=== PATIENT | female | born 1950 | race African-American/Black ===

== ENCOUNTER 2018-10-22 18:54 | Inpatient (IN) | payer OTHER ==
[~2018-10-22] VITALS: Ht 175.3 cm; Wt 127.5 kg
[~2018-10-22 18:54] MED LIST: ASPI81CT PO; BEN50 PO; CHOL200072 PO; ESCI20TA PO; FLUO60TA PO; HYDR-5122 PO; LOSA100T1 PO; MECL-322 PO; MONT10TA35 PO; SIMV20TA1 PO; THO25 PO; TIZA4CAP PO; TRAZ-343 PO
[2018-10-22 19:02] VITALS: BP 154/96
--- NOTE | 2018-10-22 19:14 | NUR ---
68 U/O FEMALE BIB EMS FROM HOME WITH C/O N/V, DIFUSE ABD PAIN, AND GENERALIZED WEAKNESS. HX OF HTN. STATES PAIN IN X4 QUADRANTS, X4 QUADRANT BOWEL SOUNDS PRESENT. VOMITING BUT DRY-HEAVE. ALERT TO NAME, PLACE, TIME, EVENT. PT STATES FEELING ILL PAST DAY. AMBULATES AT HOME BUT FEELS TO WEAK TO AMBULATE AT THIS TIME.
--- NOTE | 2018-10-22 19:14 | NUR ---
PATIENT TO BED 4 BY EMS AT THIS TIME.
[2018-10-22] MEDS ORDERED: ONDANSETRON 4 MG/2 ML VIAL IVP ONE ×2 (19:30→21:40)
[2018-10-22] MEDS ORDERED: KETOROLAC 30 MG/ML VIAL IVP ONE (19:30)
[2018-10-22] MEDS ORDERED: NACL 0.9% 1,000 ML IV ONE ×2 (19:30→20:20)
[2018-10-22] MEDS ORDERED: ALBUTEROL SULFATE/IPRATROPIU 3 ML SOL IH ONE (19:30)
[2018-10-22] MEDS ORDERED: methylPREDNISolone SS 125 MG/2 ML VIAL IVP ONE (19:35)
[2018-10-22 19:43] LABS: BASOPHILS # (AUTO) 0.1 K/uL (0.00-0.22); BASOPHILS % (AUTO) 0.6 % (0.0-2.0); HEMATOCRIT 41.1 % (36-48); HEMOGLOBIN 13.6 g/dL (12.0-16.0); LYMPHOCYTES # (AUTO) 1.8 K/uL (2.5-16.5); LYMPHOCYTES % (AUTO) 10.5 % (20.5-51.1); MEAN CORPUSCULAR HEMOGLOBIN 29 pg (27-31); MEAN CORPUSCULAR HGB CONC 33 g/dL (33-37); MEAN CORPUSCULAR VOLUME 88.6 fL (80-94); MONOCYTES # (AUTO) 0.4 K/uL (0.8-1.0); MONOCYTES % (AUTO) 2.6 % (1.7-9.3); NEUTROPHILS # (AUTO) 14.7 K/uL (1.8-7.7); NEUTROPHILS % (AUTO) 86.3 % (42.2-75.2); PLATELET COUNT (AUTO) 235 K/uL (140-450); RED BLOOD CELL COUNT(AUTO) 4.63 MIL/uL (4.20-5.40); RED CELL DISTRIBUTION WIDTH 14.3 % (11.6-13.7)
[2018-10-22 20:04] LABS: ALBUMIN 3.4 g/dL (3.4-5.0); ANION GAP 18.2 (8-16); CARBON DIOXIDE 24.5 mmol/L (21-32); TOTAL BILIRUBIN 0.4 mg/dL (0.0-1.0)
--- NOTE | 2018-10-22 20:05 | NUR ---
PT RETURN FROM CT
[2018-10-22 20:15] LABS: POTASSIUM 2.7 mmol/L (3.5-5.1)
[2018-10-22] MEDS ORDERED: MORPHINE SULFATE 4 MG/ML SYR IVP ONE (20:20)
[2018-10-22] MEDS ORDERED: POTASSIUM CHLORIDE 10 MEQ TABER PO ONE (20:20)
[2018-10-22] MEDS ORDERED: LEVOFLOXACIN 750 MG/D5W PREMIX 150 ML IV ONE (20:25)
[2018-10-22] MEDS ORDERED: METOCLOPRAMIDE 10 MG/2 ML INJ VIAL IVP ONE (20:25)
[2018-10-22] MEDS ORDERED: KCL 20 MEQ/WATER INJ PREMIX 200 ML IV ONE (20:25)
--- NOTE | 2018-10-22 20:25 | NUR ---
NEED TO ESTABILISH SECOND IV LINE. X3 ATTEMPTS. INFORMED CHARGE NURSE AND FLOAT NURSE FOR ASSISTANCE. CONTINUE TO MONITOR.
--- NOTE | 2018-10-22 20:35 | NUR ---
STILL UNABLE TO ESTABLISH IV LINE. STAFF CONTINUE TO MAKE ATTEMPTS. DR KAN NOTIFIED SECOND LINE NOT STARTED. LEVAQUIN NEEDS TO BE STARTED BUT CANNOT RUN IN LEFT HAND BECAUSE IV FLUIDS AND POTASSIUM RUNNING. CONTINUE TO MONITOR.
--- NOTE | 2018-10-22 20:37 | NUR ---
EKG PERFORMED AT BEDSIDE
[2018-10-22 20:41] LABS: APPEARANCE,URINE HAZY (CLEAR); BILIRUBIN,URINE 1+ (NEGATIVE); BLOOD, URINE NEGATIVE (NEGATIVE); COLOR,URINE ORANGE (YELLOW); LEUKOCYTE ESTERASE ,URINE NEGATIVE (NEGATIVE); NITRITE, URINE NEGATIVE (NEGATIVE); UGLUCOSE NEGATIVE (NEGATIVE)
[2018-10-22 20:46] LABS: RBC,URINE 0-5 /HPF (0-5)
--- NOTE | 2018-10-22 21:10 | NUR ---
PT UNRELIEVED. DR KAN NOTIFIED. CONTINUE TO MONITOR.
[2018-10-22] MEDS ORDERED: ACETAMINOPHEN 325 MG TAB PO PRN (21:30)
[2018-10-22] MEDS ORDERED: ONDANSETRON 4 MG/2 ML VIAL IVP PRN (21:30)
--- NOTE | 2018-10-22 21:30 | NUR ---
PAIN AND NAUSEA RELIEVED. CONTINUE TO MONITOR.
[2018-10-22] MEDS ORDERED: FAMOTIDINE 20 MG/2 ML VIAL IVP ONE (21:40)
[2018-10-22] MEDS ORDERED: TRAZ-343 PO (21:42)
[2018-10-22] MEDS ORDERED: FLUO10CA21 PO (21:43)
[2018-10-22] MEDS ORDERED: MONT10TA35 PO (21:44)
[2018-10-22] MEDS ORDERED: SIMV20TA1 PO (21:44)
[2018-10-22] MEDS ORDERED: LOSA50TA66 PO (21:46)
[2018-10-22 22:00] LABS: PROTHROMBIN TIME 10.4 secs (10.8-13.4)
[2018-10-22 22:03] LABS: BARBITURATE, URINE NEG. ng/ml (NEG <=200); BENZODIAZEPINE, URINE NEG. ng/mL (NEG <=200); CANNABINOID, URINE POS. ng/mL (NEG <=50); COCAINE, URINE NEG. ng/mL (NEG <=300); OPIATE, URINE POS. ng/mL (NEG <=2000); PHENCYCLIDINE SCREEN,URINE NEG. ng/mL (NEG <=25)
--- NOTE | 2018-10-22 22:09 | NUR ---
SECOND IV LINE, 22G LAC ESTABLISHED. LEVAQUIN STARTED. CONTINUE TO MONITOR.
[2018-10-22 22:11] LABS: FREE T4 (FREE THYROXINE) 1.13 ng/dL (0.76-1.46); MAGNESIUM 1.4 mg/dL (1.8-2.4); THYROID STIMULATING HORMONE 0.58 uIU/mL (0.34-3.74)
[2018-10-22] MEDS ORDERED: ALBUTEROL SULFATE/IPRATROPIU 3 ML SOL IH PRN (22:25)
[2018-10-22 22:40] VITALS: BP 195/99
--- NOTE | 2018-10-22 22:40 | NUR ---
RECEIVED PATIENT AND REPORT FROM EMERGENCY DEPARTMENT VIA [facility]. DAUGHTER IS AT BEDSIDE. PATIENT ADMITTED FOR GENERALIZED WEAKNESS, NAUSEA AND VOMITING. VS; BP 195/99, T 99.3, P 100, RR 22, O2 100%PATIENT IS AWAKE, ALERT, ORIENTED X 4. PATIENT IS ON TELEMETRY MONITORING. IS ON ROOM AIR. IS WNL. LAST BOWEL MOVEMENT WAS 10/19/18. AMBULATORY WITH 1 PERSON ASSIST. IV SITE ON LEFT HAND WITH 22 GA, AND LEFT ANTECUBITAL WITH 22 GA RUNNING WITH POTASSIUM 20 MeQ AT 40 ML/HR, AND NORMAL SALINE AT 50 ML/HR. PATIENT COMPLAINS OF MILD CHEST PAIN OF PRESSURE CHARACTERISTIC 8/10. BED IS AT LOW POSITION, SIDE RAILS ARE UP, AND CALL LIGHT WITHIN REACH. WILL ADMINISTER MEDICATION ORDERED, AND WILL CONTINUE TO MONITOR PATIENT.
--- NOTE | 2018-10-22 22:40 | NUR ---
REPORT GIVEN AND CARE TRANSFERED TO VIC RN ROOM 128B. TRNASFERED VIA GURNEY WITH VSS.
[2018-10-22] MEDS ORDERED: DOCUSATE SODIUM 100 MG GELCAP PO SCH (22:45)
[2018-10-22] MEDS ORDERED: ASPIRIN 325 MG TAB PO SCH (23:00)
[2018-10-22] MEDS ORDERED: MAG SULF 2000 MG/WATER PREMIX 100 ML IV SCH (23:00)
[2018-10-22] MEDS ORDERED: METOPROLOL 25 MG TAB PO SCH (23:00)
--- NOTE | 2018-10-22 23:00 | NUR ---
NO SCD NOT INDICATED. ON HEPARIN SUBQ. Addendum: 10/23/18 at 0644 by Ashlie Auguste RN CORRECTION: SCD NOT INDICATED. ON HEPARIN SUBQ.
[2018-10-22] MEDS ORDERED: NITROGLYCERIN 0.4 MG TAB SL SCH (23:15)
[2018-10-22] MEDS ORDERED: traZODone 50 MG TAB PO SCH (23:15)
[2018-10-22] MEDS ORDERED: SIMVASTATIN 20 MG TAB PO SCH (23:15)
[2018-10-22] MEDS ORDERED: SODIUM PHOS / POTASSIUM PHOS 1 PKT PDR PO SCH (23:15)
[2018-10-22] MEDS ORDERED: DICYCLOMINE HCL LIQUID 10 MG/5 ML UDC PO SCH (23:30)
[2018-10-22] MEDS ORDERED: LIDOCAINE VISCOUS 2% 20 ML UDC PO SCH (23:30)
[2018-10-22] MEDS ORDERED: ALUMINUM HYD/MAG/SIMETHICONE 30 ML UDC PO SCH (23:30)
--- NOTE | 2018-10-22 23:35 | NUR ---
ADMINISTERED NITRO AND BLOOD PRESSURE MEDS ORDERED. WILL CONTINUE TO MONITOR PATIENT
--- NOTE | 2018-10-22 23:43 | NUR ---
PT REFUSED ASPIRIN TABLET DUE TO NAUSEA.
[2018-10-23] MEDS ORDERED: NICOTINE TRANSD SYS 7 MG/24 HR PATCH TD SCH
[2018-10-23] MEDS ORDERED: PIPER/TAZO 3.375GM/D5W PREMIX 50 ML IV SCH
[2018-10-23] MEDS ORDERED: MEDICATION REC. PHARMACY CONS. 1 EA MISC MC PRN (00:30)
[2018-10-23] MEDS: MELATONIN 3 MG TAB PO PRN ×2 (01:04→22:16)
[2018-10-23 01:12] VITALS: BP 197/108
--- NOTE | 2018-10-23 01:12 | NUR ---
BLOOD PRESSURE RECHECKED 197/107,HR-86,R-18. DR. KEEN RESIDENT ON DUTY MAD AWARE. WILL ORDER MEDS.
[2018-10-23] MEDS ORDERED: hydrALAZINE 20 MG/ML VIAL IVP PRN (01:15)
[2018-10-23] MEDS: DEXT 5% / NACL 0.9% 500 ML IV SCH ×3 (01:54→15:04)
[2018-10-23] MEDS ORDERED: Z-GUARD PASTE TP PRN (02:40)
[2018-10-23 03:06] VITALS: BP 184/107
--- NOTE | 2018-10-23 03:06 | NUR ---
PT IS AWAKE. BP RECHECKED RESULT 184/107, HR-88 WILL HAVE MD AWARE. NO C/O ANY DISCOMFORT NOR PAIN NOTED.
[2018-10-23] MEDS ORDERED: MORPHINE SULFATE 4 MG/ML SYR IVP PRN (03:20)
--- NOTE | 2018-10-23 03:31 | NUR ---
DR. KEEN CAME IN TO ASSESS PATIENT. ADMINISTERED MORPHINE SULFATE 4MG/ML ORDERED. PATIENT TOLERATED IT WELL. WILL CONTINUE TO MONITOR PATIENT.
[2018-10-23] MEDS: MAG SULF 2000 MG/WATER PREMIX 50 ML IV SCH ×2 (03:42→06:19)
[2018-10-23] MEDS ORDERED: PIPERACILLIN/TAZOBACTAM 3.375 GM VIAL IV ONE (05:22)
[2018-10-23] MEDS: PIPER/TAZO 3.375GM/D5W PREMIX 50 ML IV SCH ×3 (05:45→20:25)
--- NOTE | 2018-10-23 05:45 | NUR ---
PATIENT AWAKE LYING IN BED. KYLE MARY. RECHECKED VS: BP 133/63. LABORATORY STAFF AT BEDSIDE. PATIENT DENIES ANY PAIN AT THIS TIME. WILL CONTINUE TO MONITOR PATIENT.
[2018-10-23 05:46] VITALS: BP 133/63
[2018-10-23 06:33] LABS: HEMATOCRIT 36.7 % (36-48); HEMOGLOBIN 12.4 g/dL (12.0-16.0); MEAN CORPUSCULAR HEMOGLOBIN 30 pg (27-31); MEAN CORPUSCULAR HGB CONC 34 g/dL (33-37); MEAN CORPUSCULAR VOLUME 89.3 fL (80-94); PLATELET COUNT (AUTO) 193 K/uL (140-450); RED BLOOD CELL COUNT(AUTO) 4.11 MIL/uL (4.20-5.40); RED CELL DISTRIBUTION WIDTH 14.4 % (11.6-13.7); WHITE BLOOD COUNT (AUTO) 17.1 K/uL (4.8-10.8)
[2018-10-23 07:02] LABS: ANION GAP 15.5 (8-16); CARBON DIOXIDE 24.7 mmol/L (21-32); CREATININE 1.1 mg/dL (0.6-1.3); POTASSIUM 3.2 mmol/L (3.5-5.1)
[2018-10-23 07:08] LABS: CHOL/HDL RATIO 2.5 (1-4.5)
--- NOTE | 2018-10-23 07:25 | NUR ---
ENDORSED PATIENT TO DAY SHIFT NURSE FOR CONTINUITY OF CARE. PATIENT AWAKE, LYING IN BED, WATCHING TV. NO SIGNS OF DISTRESS AT THIS TIME. BED IS IN LOW POSITION, SIDE RAILS ARE UP, AND CALL LIGHT WITHIN REACH.
--- NOTE | 2018-10-23 07:27 | NUR ---
RECEIVED BEDSIDE REPORT FROM MAGAZINE EDITOR NURSE FOR CONTINUITY OF CARE. PATIENT IS AWAKE AND RESTING ON BED AT THIS TIME. PATIENT IS AAOX4. RESPIRATION EVEN AND UNLABORED ON RA. DENIES NAUSEA, VOMITING, PAIN AND SOB. NO SIGNS OF DISTRESS NOTED. IV ON L HAND 22G, SL, AND LAC 22G, INTACT AND CLEAN, INFUSING PER MD ORDER. SMALL SKIN TEAR ON L BUTTOCK NOTED, OPTIFOAM WAS CLEAN AND DRY. PATIENT IS CONTINENT AND AMBULATE WITH STANDBY ASSIST. DISCUSSED PLAN OF CARE WITH PATIENT AND PATIENT VERBALIZED UNDERSTANDING. INSTRUCTED PATIENT TO USE THE CALL LIGHT FOR ANY ASSISTANCE AND PATIENT WAS AWARE. TELE MONITOR ATTACHED. BED IN LOW POSITION AND CALL LIGHT WITHIN REACH.
[2018-10-23 07:35] LABS: BASOPHILS % (MANUAL) 1 % (0-2); LYMPHOCYTES % (MANUAL) 12 % (20-46); MONOCYTES % (MANUAL) 2 % (5-12)
[2018-10-23 08:00] VITALS: BP 125/69
[2018-10-23] MEDS: ALBUTEROL SULFATE/IPRATROPIU 3 ML SOL IH SCH ×3 (08:19→22:01)
--- NOTE | 2018-10-23 08:34 | NUR ---
TOLERATED INCENTIVE SPIROMETRY THERAPY WELL WITHOUT INCIDENT ENCOURAGED PATIENT WITH ACKNOWLEDGEMENT TO USE INCENTIVE SPIROMETRY EVERY 1-2 WHILE AWAKE
[2018-10-23] MEDS: FLUoxetine 10 MG CAP PO SCH (08:36)
[2018-10-23] MEDS: LACTOBACILLUS RHAMNOSUS GG 1 EACH CAP PO SCH (08:37)
[2018-10-23] MEDS: DOCUSATE SODIUM 100 MG GELCAP PO SCH ×2 (08:37→20:24)
[2018-10-23] MEDS: MONTELUKAST SODIUM 10 MG TAB PO SCH (08:38)
[2018-10-23] MEDS: METOPROLOL 25 MG TAB PO SCH ×2 (08:39→20:24)
[2018-10-23] MEDS: LOSARTAN 50 MG TAB PO SCH (08:39)
[2018-10-23] MEDS: HYDROcodone/APAP 7.5/325 MG 1 TAB PO PRN ×2 (08:40→20:24)
--- NOTE | 2018-10-23 08:45 | NUR ---
PATIENT HAS BEEN SCREENED AND CATEGORIZED HIGH NUTRITION RISK. PATIENT WILL BE SEEN WITHIN 1-2 DAYS OF ADMISSION. 10/23/18-10/24/[address]
[2018-10-23] MEDS: NICOTINE TRANSD SYS 7 MG/24 HR PATCH TD SCH (08:46)
--- NOTE | 2018-10-23 08:47 | NUR ---
PATIENT COMPLAINED 6/10 PAIN ON HER ABDOMINAL AREA. ADMINISTERED SCHEDULED MEDS PER MD ORDER AND PRN PAIN MED, PATIENT TOLERATED WELL. NO SIGNS OF DISTRESS NOTED. SAFETY MEASURES IN PLACE. TELE MONITOR ATTACHED.
--- NOTE | 2018-10-23 08:59 | NUR ---
WOUND CARE EVALUATION DONE TO THIS 68 Y/O FEMALE PT. PT. IS AAX4 UNABLE TO RECALL WHAT HAPPEN TO SKIN OPENING TO LEFT UPPER BUTTOCK. LEFT UPPER BUTTOCK WITH PARTIAL THICKNESS LOSS OF SKIN 1.5X1.5 CM WITH SUPERFICIAL DEPTH, WOUND BED 100% GRANULATING TISSUE, MOIST, NO ODOR, KEENAN WOUND SKIN INTACT, NO FURTHER DAMAGE NOTICE AT THIS TIME. WOUND CARE INSTRUCTIONS PROVIDED TO PT. PT. VERBALIZES UNDERSTANDING. ASSIST PT TO BR. PRIVACY PROVIDED. PT WALKS WITH STEADY GAITS PRIMARY RN NOTIFIED PT IS IN BR. POC DISCUSSED WITH PRIMARY RN. RECOMMENDATIONS: -CLEANSE LEFT BUTTOCK OPEN WOUND WITH NS. PAT DRY, APPLY SILVASORB GEL AND COVER WITH COMPOSITE DRESSING CHANGE QD AND PRN IF SOILING, KEEP AREA DRY AND CLEAN AT ALL TIMES. Addendum: 10/23/18 at 0919 by Fanny Zuluaga RN (Grace) CLARIFICATION: LEFT BUTTOCK WOUND IS NOT A PRESSURE ULCER INJURY
[2018-10-23] MEDS ORDERED: METOPROLOL 25 MG TAB PO SCH (09:00)
[2018-10-23] MEDS ORDERED: SODIUM PHOS / POTASSIUM PHOS 1 PKT PDR PO SCH (09:00)
--- NOTE | 2018-10-23 09:50 | NUR ---
PATIENT IS AWAKE AND WATCHING TV ON BED AT THIS TIME. NO SIGNS OF DISTRESS NOTED. SAFETY MEASURES IN PLACE.
[2018-10-23] MEDS ORDERED: POTASSIUM CHLORIDE 40 MEQ, LIDOCAINE MPF 1% - 5 mL VIAL 25 MG in NACL 0.9% 250 ML IV SCH (10:00)
[2018-10-23 10:49] LABS: MAGNESIUM 2.1 mg/dL (1.8-2.4); PHOSPHORUS 3.4 mg/dL (2.5-4.9)
--- NOTE | 2018-10-23 11:25 | NUR ---
ASSISTED PATIENT TO GO THE BATHROOM AND WENT BACK ON BED. NO SIGNS OF DISTRESS NOTED. SAFETY MEASURES IN PLACE.
--- NOTE | 2018-10-23 12:15 | NUR ---
DR ARIAS IS ASSESSING PATIENT AT BEDSIDE. NO SIGNS OF DISTRESS NOTED. SAFETY MEASURES IN PLACE.
[2018-10-23] MEDS: GAUZE TP SCH (13:04)
--- NOTE | 2018-10-23 13:18 | NUR ---
PATIENT IS RECEIVING BREATHING TREATMENT AT THIS TIME. NO SIGNS OF DISTRESS NOTED. SAFETY MEASURES IN PLACE.
[2018-10-23] MEDS: CYCLOBENZAPRINE 10 MG TAB PO PRN (15:03)
--- NOTE | 2018-10-23 15:06 | NUR ---
10/23/18 RD INITIAL ASSESSMENT COMPLETED PLEASE REFER TO NUTRITION ASSESSMENT UNDER CARE ACTIVITY FOR ESTIMATED NUTRITIONAL NEEDS. 1. CONTINUE ICE CHIPS ONLY MEDICALLY NECESSARY 2. IF/WHEN PT IS MEDICALLY STABLE CONSIDER ADVANCING TO CLEAR LIQUID DIET, FOLLOWING A NA [address] TO FOLLOW-UP 2-3 DAYS, HIGH RISK KATEY PAN RD
--- NOTE | 2018-10-23 15:11 | NUR ---
PATIENT COMPLAINED 7/10 PAIN ON HER BACK AND ABDOMINAL AREA. ADMINISTERED PRN CYCLOBENZAPRINE MD ORDER, PATIENT TOLERATED WELL. APPLIED HOT PAD ON BACK. PATIENT IS LAYING DOWN ON BED AND WATCHING TV. SAFETY MEASURES IN PLACE.
[2018-10-23 16:00] VITALS: BP 137/70
--- NOTE | 2018-10-23 17:11 | NUR ---
PATIENT IS AWAKE AND WATCHING TV ON BED. DENIES PAIN, NAUSEA AND VOMITING. NO SIGNS OF DISTRESS NOTED. SAFETY MEASURES IN PLACE. BED IN LOW POSITION AND CALL LIGHT WITHIN REACH.
--- NOTE | 2018-10-23 19:13 | NUR ---
ENDORSED PATIENT AT BEDSIDE TO DIGITAL ASSOCIATE NURSE FOR CONTINUITY OF CARE. PATIENT IS IN STABLE CONDITION.
--- NOTE | 2018-10-23 19:15 | NUR ---
RECEIVED REPORT FROM DAY SHIFT NURSE FOR CONTINUITY OF CARE. PATIENT LYING DOWN IN BED, AWAKE, WATCHING TV. PATIENT ON ROOM AIR. DENIES PAIN AT THIS TIME. BED IS IN LOW POSITION, SIDE RAILS ARE UP, AND CALL LIGHT WITHIN REACH. WILL CONTINUE TO MONITOR PATIENT.
--- NOTE | 2018-10-23 20:00 | NUR ---
VS TAKEN: BP 128/72, T 98.2, P 65, RR 19, O2 99% RA
[2018-10-23] MEDS: traZODone 50 MG TAB PO SCH (20:24)
--- NOTE | 2018-10-23 20:24 | NUR ---
PATIENT LYING IN BED AWAKE, WATCHING TV. ADMINISTERED MEDS ORDERED. GAVE PATIENT EDUCATION REGARDING MEDICATIONS. PATIENT FELT NAUSEOUS AND VOMITED. WILL MEDICATE FOR N/V.
[2018-10-23] MEDS: SIMVASTATIN 20 MG TAB PO SCH (20:25)
--- NOTE | 2018-10-23 20:34 | NUR ---
ADMINISTERED ZOFRAN ORDERED FOR N/V. WILL CONTINUE TO MONITOR PATIENT.
--- NOTE | 2018-10-23 22:15 | NUR ---
PATIENT STATED HELIO HELPED. ADMINISTERED MELATONIN MEDICATION ORDERED. MEDICATION TOLERATED WELL. WILL CONTINUE TO MONITOR PATIENT.
[2018-10-24 00:25] VITALS: BP 138/70
[2018-10-24] MEDS: HYDROcodone/APAP 7.5/325 MG 1 TAB PO PRN ×3 (00:27→20:35)
[2018-10-24] MEDS: DEXT 5% / NACL 0.9% 500 ML IV SCH (01:46)
--- NOTE | 2018-10-24 02:09 | NUR ---
PATIENT LYING IN BED ASLEEP. NO SIGNS OF DISTRESS AT THIS TIME. WILL CONTINUE TO MONITOR PATIENT.
[2018-10-24] MEDS ORDERED: DEXT 5% /NACL 0.9% 1,000 ML IV SCH (03:20)
--- NOTE | 2018-10-24 04:00 | NUR ---
PATIENT LYING DOWN IN BED APPEARS TO BE ASLEEP. VITAL SIGNS WERE TAKEN. NO SIGNS OF DISTRESS AT THIS TIME. WILL CONTINUE TO MONITOR PATIENT.
[2018-10-24] MEDS: PIPER/TAZO 3.375GM/D5W PREMIX 50 ML IV SCH ×3 (04:39→23:14)
--- NOTE | 2018-10-24 05:00 | NUR ---
HUNG IV ANTIBIOTICS, AND D5NS ORDERED. ASSISTED PATIENT TO THE BATHROOM, PATIENT TOLERATED AMBULATION. WILL CONTINUE TO MONITOR PATIENT.
--- NOTE | 2018-10-24 06:00 | NUR ---
PATIENT LYING DOWN IN BED SLEEPING. LABORATORY STAFF AT BEDSIDE FOR LAB DRAW. NO SIGNS OF DISTRESS AT THIS TIME. WILL CONTINUE TO MONITOR PATIENT.
[2018-10-24 06:31] LABS: ANION GAP 13.1 (8-16); CARBON DIOXIDE 26.2 mmol/L (21-32); POTASSIUM 3.3 mmol/L (3.5-5.1)
[2018-10-24 06:32] LABS: MAGNESIUM 2.4 mg/dL (1.8-2.4)
[2018-10-24 06:48] LABS: BASOPHILS # (AUTO) 0.2 K/uL (0.00-0.22); BASOPHILS % (AUTO) 0.9 % (0.0-2.0); EOSINOPHILS % (AUTO) 0.1 % (0.0-4.0); HEMATOCRIT 34.6 % (36-48); HEMOGLOBIN 11.6 g/dL (12.0-16.0); LYMPHOCYTES # (AUTO) 4.8 K/uL (2.5-16.5); LYMPHOCYTES % (AUTO) 26.9 % (20.5-51.1); MEAN CORPUSCULAR HEMOGLOBIN 30 pg (27-31); MEAN CORPUSCULAR HGB CONC 33 g/dL (33-37); MEAN CORPUSCULAR VOLUME 90.4 fL (80-94); MONOCYTES # (AUTO) 1.1 K/uL (0.8-1.0); NEUTROPHILS # (AUTO) 11.8 K/uL (1.8-7.7); NEUTROPHILS % (AUTO) 66.1 % (42.2-75.2); PLATELET COUNT (AUTO) 146 K/uL (140-450); RED BLOOD CELL COUNT(AUTO) 3.82 MIL/uL (4.20-5.40); RED CELL DISTRIBUTION WIDTH 14.7 % (11.6-13.7); WHITE BLOOD COUNT (AUTO) 17.8 K/uL (4.8-10.8)
[2018-10-24] MEDS ORDERED: POTASSIUM CHLORIDE 10 MEQ TABER PO SCH (07:00)
--- NOTE | 2018-10-24 07:00 | NUR ---
ADMINISTERED POTASSIUM CHLORIDE PO ORDERED. PATIENT TOLERATED MEDICATION WELL. PATIENT DENIES PAIN AT THIS TIME, BUT STATES STILL NAUSEOUS. WILL ENDORSE TO DAY SHIFT FOR CONTINUITY OF CARE.
--- NOTE | 2018-10-24 07:30 | NUR ---
ENDORSED PT IN STABLE CONDITION TO AM NURSE .
--- NOTE | 2018-10-24 07:31 | NUR ---
RECEIVED BEDSIDE REPORT FROM SASHA/JAMEEL ALCANTARA. PATIENT ON MED SURGE FLOOR AND STANDARD PRECAUTIONS IN PLACE. PATIENT ON ROOM AIR, CONTINENT, AMBULATORY WITH ASSIST. SKIN ALTERATION ON L BUTTOCK. IV ON L H 22 G AND L AC 22G INFUSING D5 NS AT 50, IV ASYMPTOMATIC PATENT AND INTACT. BED IN LOW POSITION, CALL LIGHT WITHIN REACH, SIDE RAILS X2 UP
[2018-10-24 08:00] VITALS: BP 156/81
[2018-10-24] MEDS: CYCLOBENZAPRINE 10 MG TAB PO PRN ×2 (08:46→18:03)
[2018-10-24] MEDS: METOPROLOL 25 MG TAB PO SCH ×2 (08:48→22:28)
[2018-10-24] MEDS: LOSARTAN 50 MG TAB PO SCH (08:48)
[2018-10-24] MEDS: DOCUSATE SODIUM 100 MG GELCAP PO SCH ×2 (08:48→20:34)
[2018-10-24] MEDS: LACTOBACILLUS RHAMNOSUS GG 1 EACH CAP PO SCH (08:49)
[2018-10-24] MEDS: FLUoxetine 10 MG CAP PO SCH (08:49)
[2018-10-24] MEDS: MONTELUKAST SODIUM 10 MG TAB PO SCH (08:49)
--- NOTE | 2018-10-24 09:01 | NUR ---
ADMINISTERED SCHEDULED MEDS. PATIENT TOLERATED WELL Addendum: 10/24/18 at 0901 by Padma Mejia RN REFILLED WATER FOR K PAD
[2018-10-24] MEDS: ALBUTEROL SULFATE/IPRATROPIU 3 ML SOL IH SCH ×3 (09:06→19:51)
[2018-10-24] MEDS: NICOTINE TRANSD SYS 7 MG/24 HR PATCH TD SCH (09:11)
[2018-10-24] MEDS: NACL 0.9% 1,000 ML IV SCH (10:05)
--- NOTE | 2018-10-24 11:30 | NUR ---
P.T. NOTES PATIENT REFUSED TO PARTICIPATE WITH P.T. SERVICES EVEN AFTER SEVERAL ATTEMPTS WERE MADE & ENCOURAGEMENTS WERE GIVEN. SHE STATES SHE JUST WANT TO REST AND SLEEP BECAUSE SHE FEELS TIRED BUT WILL TRY TOMORROW IF SHE REMAINS IN THIS HOSPITAL. PLAN: FOLLOW UP AGAIN TOMORROW.
--- NOTE | 2018-10-24 11:40 | NUR ---
PATIENT AMBULATED TO RESTROOM
[2018-10-24] MEDS: GAUZE TP SCH (12:25)
--- NOTE | 2018-10-24 13:50 | NUR ---
PATIENT IN RESTROOM
[2018-10-24 16:00] VITALS: BP 101/49
--- NOTE | 2018-10-24 16:08 | NUR ---
PATIENT LYING IN BED, WATCHING TV, ON ROOM AIR, NO DISTRESS NOTED
--- NOTE | 2018-10-24 18:07 | NUR ---
PATIENT SITTING UP IN BED EATING DINNER
--- NOTE | 2018-10-24 19:25 | NUR ---
BEDSIDE REPORT GIVEN TO MIRIAN. PATIENT ENDORSED IN STABLE CONDITION
--- NOTE | 2018-10-24 19:26 | NUR ---
RECD. RESTING IN BED. AWAKE, A/OX4. RESPIRATION EVEN AND UNLABORED. IV OF NS AT 50 ML/HR INFUSING, LEFT AC G20, WITH SALINE LOCK AT THE LEFT HAND G22, PATENT AND INTACT. ABLE TO AMBULATE INDEPENDENTLY. WITH K-PAD AT THE BACK FOR COMFORT. PAIN IN THE BACK 05/23, WILL MEDICATE ORDERED. PLAN OF CARE FOR THE SHIFT DISCUSSED. VERBALIZED UNDERSTANDING.
[2018-10-24 20:00] VITALS: BP 138/70
--- NOTE | 2018-10-24 20:00 | NUR ---
Patient's Plan of Care was discussed and reviewed with HEARING HEALTHCARE PRACTITIONER: Oscar MILLAN
--- NOTE | 2018-10-24 20:30 | NUR ---
BP CHECKED - 95/56, HR - 61. WILL CHECKED AGAIN BEFORE GIVING METOPROLOL .
[2018-10-24] MEDS: SIMVASTATIN 20 MG TAB PO SCH (20:34)
--- NOTE | 2018-10-24 21:00 | NUR ---
AMBULATED TO BR, GAIT STEADY. HAD MODERATE BM.
--- NOTE | 2018-10-24 21:30 | NUR ---
SNACK OF SANDWICH GIVEN REQUESTED.
[2018-10-24] MEDS: traZODone 50 MG TAB PO SCH (22:28)
[2018-10-24] MEDS: MELATONIN 3 MG TAB PO PRN (22:33)
--- NOTE | 2018-10-24 22:33 | NUR ---
UNABLE TO SLEEP, MEDICATED WITH MELATONIN ORDERED.
--- NOTE | 2018-10-24 23:30 | NUR ---
SLEEPING COMFORTABLY IN BED.
--- NOTE | 2018-10-25 02:00 | NUR ---
AWAKE IN BED, ASKING FOR HER SLEEPING PILLS. REMINDED IT WAS ALREADY GIVEN TO HER. ADVISED TO GO BACK TO SLEEP.
[2018-10-25] MEDS: HYDROcodone/APAP 7.5/325 MG 1 TAB PO PRN ×2 (04:29→14:46)
--- NOTE | 2018-10-25 04:30 | NUR ---
WENT TO BR TO VOID. PAIN MEDICATION GIVEN REQUESTED.
[2018-10-25] MEDS: PIPER/TAZO 3.375GM/D5W PREMIX 50 ML IV SCH ×2 (05:48→12:30)
[2018-10-25] MEDS: NACL 0.9% 1,000 ML IV SCH (06:05)
[2018-10-25 06:15] LABS: ANION GAP 12.3 (8-16); POTASSIUM 3.3 mmol/L (3.5-5.1)
[2018-10-25 06:22] LABS: BASOPHILS # (AUTO) 0.1 K/uL (0.00-0.22); BASOPHILS % (AUTO) 0.6 % (0.0-2.0); EOSINOPHILS # (AUTO) 0.1 K/uL (0-0.4); HEMATOCRIT 33.2 % (36-48); HEMOGLOBIN 10.8 g/dL (12.0-16.0); LYMPHOCYTES # (AUTO) 3.4 K/uL (2.5-16.5); LYMPHOCYTES % (AUTO) 25.5 % (20.5-51.1); MEAN CORPUSCULAR HEMOGLOBIN 30 pg (27-31); MEAN CORPUSCULAR HGB CONC 33 g/dL (33-37); MEAN CORPUSCULAR VOLUME 91.1 fL (80-94); MONOCYTES # (AUTO) 0.8 K/uL (0.8-1.0); MONOCYTES % (AUTO) 5.8 % (1.7-9.3); NEUTROPHILS % (AUTO) 67.1 % (42.2-75.2); PLATELET COUNT (AUTO) 137 K/uL (140-450); RED BLOOD CELL COUNT(AUTO) 3.64 MIL/uL (4.20-5.40); RED CELL DISTRIBUTION WIDTH 14.6 % (11.6-13.7); WHITE BLOOD COUNT (AUTO) 13.5 K/uL (4.8-10.8)
[2018-10-25 06:25] LABS: MAGNESIUM 2.1 mg/dL (1.8-2.4); PHOSPHORUS 3.9 mg/dL (2.5-4.9)
[2018-10-25] MEDS ORDERED: POTASSIUM CHLORIDE 10 MEQ TABER PO SCH ×2 (06:25→12:00)
--- NOTE | 2018-10-25 06:45 | NUR ---
STILL SLEEPING COMFORTABLY. CONDITION REMAIN STABLE. WILL ENDORSE TO AM NURSE FOR CONTINUITY OF CARE.
[2018-10-25] MEDS: ALBUTEROL SULFATE/IPRATROPIU 3 ML SOL IH SCH ×2 (07:17→12:00)
--- NOTE | 2018-10-25 07:25 | NUR ---
ENDORSED TO AM SHIFT NURSE FOR CONTINUITY OF CARE.
--- NOTE | 2018-10-25 07:26 | NUR ---
RECEIVED BEDSIDE REPORT FROM MIRIAN. PATIENT ON MED SURGE AND STANDARD PRECAUTIONS IN PLACE. PATIENT AAOX4 AND ON ROOM AIR, NO DISTRESS NOTED. L BUTTOCKS SKIN ALTERATION, DRESSING CLEAN DRY AND INTACT. PATIENT AMBULATORY AND CONTINENT. IV ON L H 22G SALINE LOCK AND IV ON L AC 22G INFUSING NS AT 50, IV PATENT AND INTACT. BED IN LOW POSITION, CALL LIGHT WITHIN REACH, SIDE RAILS X2 UP
[2018-10-25 08:00] VITALS: BP 146/65
[2018-10-25] MEDS: CYCLOBENZAPRINE 10 MG TAB PO PRN (08:51)
[2018-10-25] MEDS: FLUoxetine 10 MG CAP PO SCH (08:52)
[2018-10-25] MEDS: DOCUSATE SODIUM 100 MG GELCAP PO SCH (08:52)
[2018-10-25] MEDS: MONTELUKAST SODIUM 10 MG TAB PO SCH (08:53)
[2018-10-25] MEDS: LOSARTAN 50 MG TAB PO SCH (08:53)
[2018-10-25] MEDS: LACTOBACILLUS RHAMNOSUS GG 1 EACH CAP PO SCH (08:53)
[2018-10-25] MEDS: METOPROLOL 25 MG TAB PO SCH (08:53)
--- NOTE | 2018-10-25 08:57 | NUR ---
ADMINISTERED SCHEDULED MEDS. PATIENT TOLERATED WELL. HELD HEPARIN SHOT SINCE PLATELETS WERE LOW, 137 Addendum: 10/25/18 at 0923 by Padma Mejia RN HELD NICOTINE PATCH SINCE PATIENT WILL BE DISCHARGED SOON
[2018-10-25] MEDS: NICOTINE TRANSD SYS 7 MG/24 HR PATCH TD SCH (09:00)
[2018-10-25] MEDS ORDERED: HYDR-5122 PO (11:19)
[2018-10-25 11:33] LABS: ANION GAP 11.5 (8-16); CARBON DIOXIDE 25.7 mmol/L (21-32); CREATININE 0.9 mg/dL (0.6-1.3); POTASSIUM 3.2 mmol/L (3.5-5.1)
--- NOTE | 2018-10-25 12:31 | NUR ---
ADMINISTERED SCHEDULED MEDS EXCEPT FOR ZOSYN SINCE PATIENT REFUSED
--- NOTE | 2018-10-25 12:44 | NUR ---
DISCHARGE INSTRUCTIONS PROVIDED TO PATIENT. PATIENT INSTRUCTED TO FOLLOW UP WITH PCP FOR BMP AND ABNORMAL CT FINDINGS. EDUCATED TO RETURN TO NEAREST ER IF SYMPTOMS WORSEN. L BUTTOCKS SKIN ALTERATION PICTURE TAKEN. PNA AND FLU VACCINE UP TO DATE 2017. REMOVED WRIST BANDS AND BOTH IV'S, BOTH IV TIPS INTACT. ALL BELONGINGS SENT HOME WITH PATIENT. ANSWERED ALL QUESTIONS AND CONCERNS. PATIENT PROVIDED WITH DISCHARGE PRESCRIPTION.
[2018-10-25] MEDS: GAUZE TP SCH (13:49)
--- NOTE | 2018-10-25 14:33 | NUR ---
DISCHARGE IN PROGRESS NO PATIENT ID REMOVED BY RN LOC AWAKE AND ALERT VERBALLY RESPONSIVE REFUSED HHN THERAY AND RESPIRATORY DRUG NO PULMONARY DISTRESS NOTED BREATH SOUNDS POSTERIOR/BILATERAL CLEAR APEX TO MID TO RALES AT BASES SATURATION 97% ON ROOM AIR HR 62 RR 20
--- NOTE | 2018-10-25 14:55 | NUR ---
PATIENT WHEELED OUT TO MAIN LOBBY ACCOMPANIED BY DAUGHTER. ALL BELONGINGS SENT HOME WITH PATIENT. PATIENT DISCHARGED TO OWN HOME
[2018-10-25] MEDS ORDERED: FLUCONAZOLE 100 MG TAB PO SCH (15:00)
== END 2018-10-25 14:55 | disposition home or self-care (01) | DRG 872 ==
LOC: MED 18:54 → MMU 21:43
PROVIDERS: ADMIT General Practice; ATTEND General Practice
DX: A41.9 Sepsis, unspecified organism (principal); Z68.41 Body mass index [BMI] 40.0-44.9, adult; K52.9 Noninfective gastroenteritis and colitis, unspecified; K21.9 Gastro-esophageal reflux disease without esophagitis; E87.6 Hypokalemia; E83.39 Other disorders of phosphorus metabolism; E83.42 Hypomagnesemia; I16.0 Hypertensive urgency; E66.01 Morbid (severe) obesity due to excess calories; I10 Essential (primary) hypertension; J44.9 Chronic obstructive pulmonary disease, unspecified; F32.9 Major depressive disorder, single episode, unspecified; F17.200 Nicotine dependence, unspecified, uncomplicated; F12.988 Cannabis use, unspecified with other cannabis-induced disorder; T40.7X5A Adverse effect of cannabis (derivatives), initial encounter; Z71.3 Dietary counseling and surveillance; Z86.73 Personal history of transient ischemic attack (TIA), and cerebral infarction without residual deficits; Z80.9 Family history of malignant neoplasm, unspecified; Y92.89 Other specified places as the place of occurrence of the external cause
CPT/HCPCS: 36415; 71045; 80048; 80053; 80305; 81001; 82150; 83036; 83605; 83690; 83735; 83880; 84100; 84439; 84443; 84484; 85025; 85610; 85730; 87040; 87081; 87086; 87804; 93005; 94640; 96365; 96375; 96376; 97112; 97116; 97530; 99285; C1758; J0360; J1644; J1885; J1956; J2001; J2270; J2405; J2543; J2765; J2930; J3475; J3480; J3490; J7030; J7042; J7060; J7620

== ENCOUNTER 2019-02-04 12:41 | Inpatient (IN) | payer OTHER ==
[~2019-02-04] VITALS: Ht 165.1 cm; Wt 117.9 kg
[~2019-02-04 12:41] MED LIST changes: -ASPI81CT PO; -BEN50 PO; -CHOL200072 PO; -ESCI20TA PO; +FLUO10CA21 PO; -FLUO60TA PO; -LOSA100T1 PO; +LOSA50TA66 PO; -MECL-322 PO; -THO25 PO; -TIZA4CAP PO
[2019-02-04 12:42] VITALS: BP 95/46
[2019-02-04] MEDS ORDERED: NACL 0.9% 1,000 ML IV ONE (13:05)
[2019-02-04] MEDS ORDERED: GABA400C PO (13:18)
[2019-02-04 13:45] LABS: BASOPHILS % (AUTO) 0.3 % (0.0-2.0); HEMATOCRIT 39.9 % (36-48); LYMPHOCYTES # (AUTO) 0.9 K/uL (2.5-16.5); LYMPHOCYTES % (AUTO) 8.6 % (20.5-51.1); MEAN CORPUSCULAR HEMOGLOBIN 31 pg (27-31); MEAN CORPUSCULAR HGB CONC 33 g/dL (33-37); MEAN CORPUSCULAR VOLUME 94.9 fL (80-94); MONOCYTES # (AUTO) 0.3 K/uL (0.8-1.0); MONOCYTES % (AUTO) 3.3 % (1.7-9.3); NEUTROPHILS # (AUTO) 8.7 K/uL (1.8-7.7); NEUTROPHILS % (AUTO) 87.8 % (42.2-75.2); PLATELET COUNT (AUTO) 154 K/uL (140-450); RED BLOOD CELL COUNT(AUTO) 4.21 MIL/uL (4.20-5.40); RED CELL DISTRIBUTION WIDTH 15.7 % (11.6-13.7); WHITE BLOOD COUNT (AUTO) 9.9 K/uL (4.8-10.8)
[2019-02-04] MEDS ORDERED: MECL-272 PO (13:47)
[2019-02-04] MEDS ORDERED: VITAMIN D PO (13:47)
[2019-02-04] MEDS ORDERED: DOCU-299 PO (13:47)
[2019-02-04] MEDS ORDERED: TIZA4TAB11 PO (13:47)
[2019-02-04 13:53] LABS: ANION GAP 12.3 (8-16); CARBON DIOXIDE 31.1 mmol/L (21-32); CHLORIDE 101 mmol/L (98-107); CREATININE 1.5 mg/dL (0.6-1.3); GFR ARICAN-AMERICAN 44 mL/min (>90); GLUCOSE 138 mg/dL (74-106); POTASSIUM 4.4 mmol/L (3.5-5.1); SODIUM SERUM 140 mmol/L (136-145); UREA NITROGEN, BLOOD 8 mg/dL (7-18)
[2019-02-04 14:00] LABS: ALBUMIN 2.7 g/dL (3.4-5.0); ASPARTATE AMINOTRANSFERASE 14 U/L (15-37); SALICYLATE 5.3 mg/dL (2.8-20.0); TOTAL BILIRUBIN 0.2 mg/dL (0.0-1.0)
[2019-02-04 14:10] LABS: APPEARANCE,URINE CLEAR (CLEAR); BILIRUBIN,URINE NEGATIVE (NEGATIVE); BLOOD, URINE NEGATIVE (NEGATIVE); COLOR,URINE YELLOW (YELLOW); LEUKOCYTE ESTERASE ,URINE NEGATIVE (NEGATIVE); NITRITE, URINE NEGATIVE (NEGATIVE); UGLUCOSE NEGATIVE (NEGATIVE)
[2019-02-04 14:13] LABS: BARBITURATE, URINE NEG. ng/ml (NEG <=200); BENZODIAZEPINE, URINE NEG. ng/mL (NEG <=200); CANNABINOID, URINE NEG. ng/mL (NEG <=50); COCAINE, URINE NEG. ng/mL (NEG <=300); OPIATE, URINE POS. ng/mL (NEG <=2000); PHENCYCLIDINE SCREEN,URINE NEG. ng/mL (NEG <=25)
[2019-02-04] MEDS ORDERED: ASPIRIN 81 MG TAB.CHEW PO ONE (14:40)
[2019-02-04] MEDS ORDERED: ACETAMINOPHEN 325 MG TAB PO PRN (14:55)
[2019-02-04 15:57] LABS: PROTHROMBIN TIME 9.8 secs (10.8-13.4)
[2019-02-04 16:13] LABS: MAGNESIUM 1.8 mg/dL (1.8-2.4); PHOSPHORUS 4.8 mg/dL (2.5-4.9); THYROID STIMULATING HORMONE 1.45 uIU/mL (0.34-3.74)
[2019-02-04 16:21] LABS: ACETAMINOPHEN < 0.5 ug/ml (10-30)
[2019-02-04] MEDS ORDERED: MECLIZINE 25 MG TAB PO PRN (16:25)
[2019-02-04] MEDS: HYDROcodone/APAP 7.5/325 MG 1 TAB PO PRN (16:27)
[2019-02-04] MEDS: NACL 0.9% 1,000 ML IV SCH (16:27)
[2019-02-04 16:30] VITALS: BP 150/82
[2019-02-04 20:00] VITALS: BP 140/78
[2019-02-04] MEDS: DOCUSATE SODIUM 100 MG GELCAP PO SCH (21:28)
[2019-02-04] MEDS: SIMVASTATIN 20 MG TAB PO SCH (21:29)
[2019-02-04] MEDS ORDERED: ALBUTEROL SULFATE/IPRATROPIU 3 ML SOL IH PRN (21:55)
[2019-02-05] VITALS: BP 157/86
[2019-02-05 04:00] VITALS: BP 146/66
[2019-02-05] MEDS ORDERED: LOVENOX 1MG/KG Q12H SUBQ SCH (05:15)
[2019-02-05] MEDS ORDERED: NITROGLYCERIN 0.4 MG TAB SL PRN (05:15)
[2019-02-05 06:39] LABS: BASOPHILS % (AUTO) 0.4 % (0.0-2.0); EOSINOPHILS % (AUTO) 0.1 % (0.0-4.0); HEMATOCRIT 37.6 % (36-48); HEMOGLOBIN 12.1 g/dL (12.0-16.0); LYMPHOCYTES # (AUTO) 2.1 K/uL (2.5-16.5); LYMPHOCYTES % (AUTO) 18.5 % (20.5-51.1); MEAN CORPUSCULAR HEMOGLOBIN 31 pg (27-31); MEAN CORPUSCULAR HGB CONC 32 g/dL (33-37); MEAN CORPUSCULAR VOLUME 95.2 fL (80-94); MONOCYTES # (AUTO) 0.8 K/uL (0.8-1.0); MONOCYTES % (AUTO) 7.4 % (1.7-9.3); NEUTROPHILS # (AUTO) 8.2 K/uL (1.8-7.7); NEUTROPHILS % (AUTO) 73.6 % (42.2-75.2); PLATELET COUNT (AUTO) 143 K/uL (140-450); RED BLOOD CELL COUNT(AUTO) 3.95 MIL/uL (4.20-5.40); RED CELL DISTRIBUTION WIDTH 15.4 % (11.6-13.7); WHITE BLOOD COUNT (AUTO) 11.1 K/uL (4.8-10.8)
[2019-02-05] MEDS: NACL 0.9% 1,000 ML IV SCH (06:57)
[2019-02-05 07:17] LABS: MAGNESIUM 1.9 mg/dL (1.8-2.4); PHOSPHORUS 3.4 mg/dL (2.5-4.9)
[2019-02-05 07:21] LABS: CHOL/HDL RATIO 2.6 (1-4.5)
[2019-02-05 07:34] LABS: ANION GAP 12.3 (8-16); CARBON DIOXIDE 29.7 mmol/L (21-32); CREATININE 0.9 mg/dL (0.6-1.3)
[2019-02-05 08:00] VITALS: BP 136/83
[2019-02-05] MEDS: MONTELUKAST SODIUM 10 MG TAB PO SCH (08:43)
[2019-02-05] MEDS: FLUoxetine 10 MG CAP PO SCH (08:43)
[2019-02-05] MEDS: METOPROLOL 25 MG TAB PO SCH ×2 (08:44→20:34)
[2019-02-05] MEDS: HYDROcodone/APAP 7.5/325 MG 1 TAB PO PRN ×3 (08:44→20:39)
[2019-02-05] MEDS: LOSARTAN 50 MG TAB PO SCH (08:44)
[2019-02-05] MEDS: DOCUSATE SODIUM 100 MG GELCAP PO SCH ×2 (08:44→20:33)
[2019-02-05] MEDS: ASPIRIN 81 MG TAB.CHEW PO SCH (08:44)
[2019-02-05] MEDS: ENOXAPARIN 100 MG/ML SYR SUBQ SCH ×2 (08:50→20:35)
[2019-02-05 12:00] VITALS: BP 160/72
[2019-02-05 16:00] VITALS: BP 150/102
[2019-02-05] MEDS: ONDANSETRON 4 MG/2 ML VIAL IVP PRN (16:45)
[2019-02-05 20:00] VITALS: BP 151/101
[2019-02-05] MEDS: SIMVASTATIN 20 MG TAB PO SCH (20:33)
[2019-02-06] VITALS: BP 175/93
[2019-02-06] MEDS ORDERED: hydrALAZINE 20 MG/ML VIAL IVP SCH (00:30)
[2019-02-06] MEDS: NACL 0.9% 1,000 ML IV SCH ×2 (02:57→22:57)
[2019-02-06 04:00] VITALS: BP 135/77
[2019-02-06 07:35] LABS: BASOPHILS # (AUTO) 0.1 K/uL (0.00-0.22); BASOPHILS % (AUTO) 0.8 % (0.0-2.0); EOSINOPHILS # (AUTO) 0.1 K/uL (0-0.4); EOSINOPHILS % (AUTO) 0.6 % (0.0-4.0); HEMATOCRIT 36.6 % (36-48); LYMPHOCYTES # (AUTO) 3.3 K/uL (2.5-16.5); LYMPHOCYTES % (AUTO) 31.1 % (20.5-51.1); MEAN CORPUSCULAR HEMOGLOBIN 31 pg (27-31); MEAN CORPUSCULAR HGB CONC 33 g/dL (33-37); MEAN CORPUSCULAR VOLUME 95.2 fL (80-94); MONOCYTES # (AUTO) 0.8 K/uL (0.8-1.0); MONOCYTES % (AUTO) 7.7 % (1.7-9.3); NEUTROPHILS # (AUTO) 6.3 K/uL (1.8-7.7); NEUTROPHILS % (AUTO) 59.8 % (42.2-75.2); PLATELET COUNT (AUTO) 167 K/uL (140-450); RED BLOOD CELL COUNT(AUTO) 3.84 MIL/uL (4.20-5.40); RED CELL DISTRIBUTION WIDTH 15.7 % (11.6-13.7); WHITE BLOOD COUNT (AUTO) 10.5 K/uL (4.8-10.8)
[2019-02-06 07:42] LABS: ANION GAP 11.1 (8-16); CARBON DIOXIDE 30.6 mmol/L (21-32); CREATININE 0.6 mg/dL (0.6-1.3); POTASSIUM 3.7 mmol/L (3.5-5.1)
[2019-02-06 08:00] VITALS: BP 156/82
[2019-02-06] MEDS: DOCUSATE SODIUM 100 MG GELCAP PO SCH ×2 (08:15→20:39)
[2019-02-06] MEDS: LOSARTAN 50 MG TAB PO SCH (08:15)
[2019-02-06] MEDS: FLUoxetine 10 MG CAP PO SCH (08:15)
[2019-02-06] MEDS: ASPIRIN 81 MG TAB.CHEW PO SCH (08:15)
[2019-02-06] MEDS: MONTELUKAST SODIUM 10 MG TAB PO SCH (08:15)
[2019-02-06] MEDS: HYDROcodone/APAP 7.5/325 MG 1 TAB PO PRN (08:16)
[2019-02-06] MEDS: METOPROLOL 25 MG TAB PO SCH ×2 (08:16→20:40)
[2019-02-06] MEDS: ONDANSETRON 4 MG/2 ML VIAL IVP PRN ×3 (08:30→19:40)
[2019-02-06] MEDS: ENOXAPARIN 100 MG/ML SYR SUBQ SCH ×2 (09:00→20:46)
[2019-02-06 16:00] VITALS: BP 181/88
[2019-02-06] MEDS: SIMVASTATIN 20 MG TAB PO SCH (20:39)
[2019-02-07] MEDS ORDERED: hydrALAZINE 20 MG/ML VIAL IVP SCH
[2019-02-07] MEDS: ONDANSETRON 4 MG/2 ML VIAL IVP PRN (02:32)
[2019-02-07] MEDS: NACL 0.9% 1,000 ML IV SCH (02:50)
[2019-02-07] MEDS ORDERED: hydrALAZINE 20 MG/ML VIAL IVP ONE (03:35)
[2019-02-07] MEDS ORDERED: cloNIDine 0.1 MG TAB PO ONE (03:40)
[2019-02-07] MEDS ORDERED: cloNIDine 0.1 MG TAB ONE (03:53)
[2019-02-07 04:00] VITALS: BP 189/102
[2019-02-07 05:02] VITALS: BP 123/72
[2019-02-07] MEDS: FLUoxetine 10 MG CAP PO SCH (10:58)
[2019-02-07] MEDS: LOSARTAN 50 MG TAB PO SCH (10:59)
[2019-02-07] MEDS: METOPROLOL 25 MG TAB PO SCH (11:00)
[2019-02-07] MEDS: DOCUSATE SODIUM 100 MG GELCAP PO SCH (11:00)
[2019-02-07] MEDS: ASPIRIN 81 MG TAB.CHEW PO SCH (11:00)
[2019-02-07] MEDS: MONTELUKAST SODIUM 10 MG TAB PO SCH (11:01)
[2019-02-07] MEDS: ENOXAPARIN 100 MG/ML SYR SUBQ SCH (11:04)
[2019-02-07] MEDS: HYDROcodone/APAP 7.5/325 MG 1 TAB PO PRN (15:29)
== END 2019-02-07 16:00 | disposition home health service (06) | DRG 917 ==
LOC: MED 12:41 → MMU 14:54 → MTU 16:15
PROVIDERS: ADMIT General Practice; ATTEND General Practice
DX: T40.601A Poisoning by unspecified narcotics, accidental (unintentional), initial encounter (principal); I21.A1 Myocardial infarction type 2; E43 Unspecified severe protein-calorie malnutrition; G93.40 Encephalopathy, unspecified; I69.354 Hemiplegia and hemiparesis following cerebral infarction affecting left non-dominant side; Z68.41 Body mass index [BMI] 40.0-44.9, adult; G90.8 Other disorders of autonomic nervous system; E66.01 Morbid (severe) obesity due to excess calories; E86.0 Dehydration; G89.29 Other chronic pain; I10 Essential (primary) hypertension; J44.9 Chronic obstructive pulmonary disease, unspecified; F32.9 Major depressive disorder, single episode, unspecified; E78.5 Hyperlipidemia, unspecified; Z71.3 Dietary counseling and surveillance; Y92.89 Other specified places as the place of occurrence of the external cause
CPT/HCPCS: 36415; 36600; 70450; 71045; 80048; 80053; 80305; 81003; 82140; 82550; 82803; 83036; 83605; 83735; 83880; 84100; 84443; 84484; 85025; 85610; 85730; 87040; 87081; 93005; 93880; 96360; 96361; 97110; 97112; 97116; 97161-GP; 97530; 99291; G0480; G0482; J0360; J1644; J1650; J2405; J7030; Q0092

== ENCOUNTER 2019-03-21 05:11 | Inpatient (IN) | payer OTHER ==
[~2019-03-21] VITALS: Ht 172.7 cm; Wt 90.7 kg
[2019-03-21 05:11] VITALS: BP 198/102
[~2019-03-21 05:11] MED LIST changes: +DOCU-299 PO; +GABA400C PO; -HYDR-5122 PO; +MECL-272 PO; +TIZA4TAB11 PO; +VITAMIN D PO
--- NOTE | 2019-03-21 06:03 | NUR ---
68 Y/O BIB AMBULANCE FROM HOME. PRESENTS TO ED, C/O ALOC PER SPINNING LATHE OPERATOR AUTOMATIC. PT IS ALERT TO PERSON AND PLACE. GIVES MINIMAL RESPONSE ABOUT WELL BEING. PER REPORT, PT HAS HX OF TAKING HER PRESCRIPTION OF MUSCLE RELAXANTS TO CAUSE ALOC. PT HAS UNSTEADY GAIT. PT DENIES ANY FALL. PT DENIES ANY LIGHTHEADEDNESS OR DIZZINESS. C/O OF LOWER BACK PAIN 01/21. DENIES ANY SOB/CHEST PAIN. ERMD AWARE. WILL CONTINUE TO MONITOR.
[2019-03-21 06:14] LABS: APPEARANCE,URINE CLEAR (CLEAR); BILIRUBIN,URINE NEGATIVE (NEGATIVE); BLOOD, URINE NEGATIVE (NEGATIVE); COLOR,URINE YELLOW (YELLOW); LEUKOCYTE ESTERASE ,URINE NEGATIVE (NEGATIVE); NITRITE, URINE NEGATIVE (NEGATIVE); UGLUCOSE NEGATIVE (NEGATIVE)
--- NOTE | 2019-03-21 06:16 | NUR ---
PT TAKEN TO CT
[2019-03-21 06:21] LABS: BARBITURATE, URINE NEG. ng/ml (NEG <=200); BENZODIAZEPINE, URINE NEG. ng/mL (NEG <=200); CANNABINOID, URINE NEG. ng/mL (NEG <=50); COCAINE, URINE NEG. ng/mL (NEG <=300); OPIATE, URINE NEG. ng/mL (NEG <=2000); PHENCYCLIDINE SCREEN,URINE NEG. ng/mL (NEG <=25)
[2019-03-21 06:21] LABS: ANION GAP 13.3 (8-16); CARBON DIOXIDE 32.9 mmol/L (21-32); CREATININE 0.8 mg/dL (0.6-1.3); HEMATOCRIT 40.1 % (36-48); HEMOGLOBIN 13.3 g/dL (12.0-16.0); MEAN CORPUSCULAR HEMOGLOBIN 31 pg (27-31); MEAN CORPUSCULAR HGB CONC 33 g/dL (33-37); MEAN CORPUSCULAR VOLUME 92.2 fL (80-94); PLATELET COUNT (AUTO) 192 K/uL (140-450); POTASSIUM 3.2 mmol/L (3.5-5.1); RED BLOOD CELL COUNT(AUTO) 4.35 MIL/uL (4.20-5.40); RED CELL DISTRIBUTION WIDTH 14.9 % (11.6-13.7); WHITE BLOOD COUNT (AUTO) 16.2 K/uL (4.8-10.8)
[2019-03-21 06:27] LABS: ALBUMIN 3.5 g/dL (3.4-5.0); TOTAL BILIRUBIN 0.7 mg/dL (0.0-1.0)
[2019-03-21 06:37] LABS: LYMPHOCYTES % (MANUAL) 2 % (20-46); MONOCYTES % (MANUAL) 5 % (5-12)
--- NOTE | 2019-03-21 07:21 | NUR ---
X-RAY AT BEDSIDE.
[2019-03-21] MEDS ORDERED: ONDANSETRON 4 MG/2 ML VIAL IM/IVP PRN (07:25)
[2019-03-21] MEDS ORDERED: DOCUSATE SODIUM 100 MG GELCAP PO PRN (07:25)
[2019-03-21] MEDS ORDERED: NITROGLYCERIN 0.4 MG TAB SL PRN (07:25)
[2019-03-21] MEDS ORDERED: ACETAMINOPHEN 325 MG TAB PO PRN (07:25)
[2019-03-21] MEDS ORDERED: metroNIDAZOLE 250 MG TAB PO SCH (07:58)
[2019-03-21] MEDS ORDERED: KCL 20 MEQ/WATER INJ PREMIX 200 ML IV SCH (08:00)
[2019-03-21] MEDS: NACL 0.9% 1,000 ML IV SCH (08:07)
--- NOTE | 2019-03-21 08:14 | NUR ---
LAB AT BEDSIDE.
[2019-03-21 08:27] LABS: PROTHROMBIN TIME 10.9 secs (10.8-13.4)
--- NOTE | 2019-03-21 08:35 | NUR ---
Patient will be admitted to care of DR. VALDIVIA . Admited to TELE. Will go to room 107 A. Belongings list completed. Report to JAMEEL VITAL .
--- NOTE | 2019-03-21 08:35 | NUR ---
PT ADMITTED FROM ER. AWAKE, OBEYS COMMANDS, AAOX1. PT UNABLE TO PROPERLY AND COMPLETELY GIVE MEDICAL HISTORY. FOLLOW UP ON FLU AND PNA VACCINE TO BE DONE UPON DISCHARGE. IV IN PLACE, PATENT AND ASYMPTOMATIC INFUSING PER ORDER IN R H 20 G. RESPIRATIONS EVEN AND UNLABORED ON ROOM AIR. CLEAR BREATH SOUNDS. PT DENIES PAIN AT THIS TIME. NO DISTRESS NOTED. SKIN INTACT. BED IN LOW POSITION. SAFETY MEASURES IN PLACE. CALL LIGHT WITHIN REACH. WILL CONTINUE TO MONITOR.
[2019-03-21] MEDS ORDERED: LISINOPRIL 5 MG TAB PO SCH (09:00)
[2019-03-21] MEDS ORDERED: MECLIZINE 25 MG TAB PO PRN (09:20)
[2019-03-21] MEDS ORDERED: cefTRIAXone 1,000 MG VIAL ONE (10:09)
[2019-03-21] MEDS: HYDROcodone/APAP 5/325 MG 1 TAB TAB PO PRN ×2 (10:15→18:22)
[2019-03-21] MEDS: ASPIRIN 81 MG TAB.CHEW PO SCH (10:15)
[2019-03-21] MEDS: METOPROLOL 25 MG TAB PO SCH ×2 (10:18→21:05)
[2019-03-21 10:51] LABS: CHOL/HDL RATIO 2.4 (1-4.5); MAGNESIUM 1.7 mg/dL (1.8-2.4); PHOSPHORUS 2.1 mg/dL (2.5-4.9); THYROID STIMULATING HORMONE 0.67 uIU/mL (0.34-3.74)
--- NOTE | 2019-03-21 11:06 | NUR ---
MEDICATIONS ADMINISTERED PER ORDER. PT TOLERATED WELL. WILL CONTINUE TO MONITOR.
[2019-03-21 12:00] VITALS: BP 172/100
[2019-03-21] MEDS ORDERED: ALBUTEROL SULFATE/IPRATROPIU 3 ML SOL IH PRN (12:30)
--- NOTE | 2019-03-21 12:32 | NUR ---
PATIENT HAS BEEN SCREENED AND CATEGORIZED MODERATE NUTRITION RISK. PATIENT WILL BE SEEN WITHIN 3-5 DAYS OF ADMISSION. 03/23/19 03/25/[address]
--- NOTE | 2019-03-21 12:47 | NUR ---
ASSESSMENT COMPLETED. PT STATES NO HX OF ASTHMA OR COPD, PT SPO2 100% ON RA.NO RESP DISTRESS NOTED AND IS EASY TO BREATHE AT THE MOMENT. INFORMED HER TO LET US KNOW IF SHE BECOMES SOB. WILL CONTINUE TO MONITOR.
[2019-03-21] MEDS ORDERED: LACTOBACILLUS RHAMNOSUS GG 1 EACH CAP PO SCH (12:54)
[2019-03-21] MEDS ORDERED: SODIUM PHOS / POTASSIUM PHOS 1 PKT PDR PO SCH (13:00)
[2019-03-21] MEDS ORDERED: MAG SULF 2000 MG/WATER PREMIX 50 ML IV SCH (13:00)
[2019-03-21] MEDS: metroNIDAZOLE 250 MG TAB PO SCH ×2 (13:26→21:05)
--- NOTE | 2019-03-21 13:28 | NUR ---
MEDICATIONS ADMINISTERED PER ORDER. PT TOLERATED WELL. NO DISTRESS NOTED. WILL CONTINUE TO MONITOR.
--- NOTE | 2019-03-21 15:54 | NUR ---
VITAL SIGNS TAKEN AT THIS TIME. PT IN NO DISTRESS. DENIES PAIN AT THIS TIME. WILL CONTINUE TO MONITOR.
[2019-03-21 16:00] VITALS: BP 185/89
--- NOTE | 2019-03-21 18:20 | NUR ---
PT COMPLAINS OF BACK PAIN. PRN NORCO GIVEN AT THIS TIME. WILL ENDORSE REEVALUATION TO NIGHT NURSE.
--- NOTE | 2019-03-21 19:08 | NUR ---
BEDSIDE REPORT GIVEN TO NIGHT NURSE FOR CONTINUITY OF CARE.
--- NOTE | 2019-03-21 19:10 | NUR ---
RECEIVED BEDSIDE REPORT FROM AM SHIFT RN KANDI, FOR PT'S CONTINUITY OF CARE. PT IS AWAKE, IS ON TRUSS DRIVER HELPER, ON ROOM AIR, HAS RIGHT HAND 20G WITH NS AT 20ML/HR, PT DENIES PAIN AT THIS TIME. EXPLAINED TO PT THE SECONDARY EDUCATION PROFESSOR ROUTINE, PT VERBALIZED UNDERSTANDING. SAFETY MEASURES IN PLACE. FALL PRECAUTION IN PLACE. CALL LIGHT IS WITHIN REACH. WILL MONITOR PT THROUGHOUT SHIFT.
[2019-03-21 20:00] VITALS: BP 183/104
[2019-03-21] MEDS: ATORVASTATIN 20 MG TAB PO SCH (21:04)
[2019-03-21] MEDS: DOCUSATE SODIUM 100 MG GELCAP PO SCH (21:04)
[2019-03-21] MEDS: MORPHINE SULFATE 2 MG/ML SYR IVP PRN (21:05)
--- NOTE | 2019-03-21 21:05 | NUR ---
PT C/O BACK PAIN 12/21. ADMINISTERED PRN IV PUSH PAIN MEDICATION ORDERED. WILL CONTINUE TO MONITOR PT.
--- NOTE | 2019-03-21 21:05 | NUR ---
VS CHECKED AMD CHARTED. ADMINISTERED SCHEDULED PO AND SUBQ MEDICATIONS ORDERED. PT TOLERATED THEM WELL. ASSISTED PT TO THE BSC. PT MADE COMFORTABLE. SAFETY MEASURES IN PLACE. CALL LIGHT IS WITHIN REACH. WILL CONTINUE TO MONITOR PT.
[2019-03-22] VITALS: BP 152/106
[2019-03-22] MEDS: HYDROcodone/APAP 5/325 MG 1 TAB TAB PO PRN ×3 (00:16→17:07)
--- NOTE | 2019-03-22 00:16 | NUR ---
VS CHECKED AND CHARTED. PT C/O BACK PAIN 10/21. ADMINISTERED PRN PO PAIN MEDICATION ORDERED. WILL CONTINUE TO MONITOR PT. NOTIFIED MD RE: BP, NNO.
--- NOTE | 2019-03-22 02:00 | NUR ---
ASSISTED PT TO BSC. PT TOLERATED ACTIVITY WELL. WILL CONTINUE TO MONITOR PT.
[2019-03-22 04:00] VITALS: BP 176/91
[2019-03-22] MEDS: metroNIDAZOLE 250 MG TAB PO SCH ×3 (05:36→20:12)
--- NOTE | 2019-03-22 05:36 | NUR ---
ADMINISTERED SCHEDULED PO ABX ORDERED. PT TOLERATED IT WELL. RADIOLOGY PERSONNEL AT BEDSIDE FOR XRAY. WILL CONTINUE TO MONITOR PT.
--- NOTE | 2019-03-22 06:21 | NUR ---
PT LYING DOWN ASLEEP WITH NO SIGNS OF DISTRESS. WILL ENDORSE TO AM SHIFT RN FOR PT'S CONTINUITY OF CARE.
[2019-03-22] MEDS: NACL 0.9% 1,000 ML IV SCH (07:23)
--- NOTE | 2019-03-22 07:25 | NUR ---
RECEIVED BEDSIDE REPORT FROM GROUP LEADER SEMICONDUCTOR TESTING NURSE FOR CONTINUITY OF CARE. PATIENT IS AWAKE AND RESTING ON BED AT THIS TIME. PATIENT IS AAOX2 TO NAME, AND PLACE. RESPIRATION EVEN AND UNLABORED ON RA. DENIED PAIN, DIZZINESS AND SOB AT THIS TIME. NO SIGNS OF DISTRESS NOTED. IV ON R HAND 20G, CLEAN AND INTACT, WRAP AROUND WITH KERLIX, INFUSING PER MD ORDER. PATIENT IS CONTINENT AND ABLE TO USE THE BEDSIDE COMMODE WITH ASSIST. SKIN CLEAN AND DRY. DISCUSSED PLAN OF CARE WITH PATIENT AND PATIENT VERBALIZED UNDERSTANDING. TELE MONITOR ATTACHED. FALL RISK PROTOCOL IN PLACE AND BED ALARM ACTIVATED. SAFETY MEASURES IN PLACE. BED IN LOW POSITION AND CALL LIGHT WITHIN REACH. INSTRUCTED PATIENT TO USE THE CALL LIGHT FOR ANY ASSISTANCE AND PATIENT WAS AWARE.
[2019-03-22 08:00] VITALS: BP 168/95
[2019-03-22 08:09] LABS: T4 (THYROXINE) 6.3 ug/dL (4.5-12.0)
[2019-03-22] MEDS: FLUoxetine 10 MG CAP PO SCH (08:16)
[2019-03-22] MEDS: ASPIRIN 81 MG TAB.CHEW PO SCH (08:16)
[2019-03-22] MEDS: LORATADINE 10 MG TAB PO SCH (08:16)
[2019-03-22] MEDS: DOCUSATE SODIUM 100 MG GELCAP PO SCH ×2 (08:17→20:13)
[2019-03-22] MEDS: LACTOBACILLUS RHAMNOSUS GG 1 EACH CAP PO SCH (08:17)
[2019-03-22] MEDS: METOPROLOL 25 MG TAB PO SCH ×2 (08:17→20:13)
--- NOTE | 2019-03-22 08:19 | NUR ---
ADMINISTERED MEDS PER MD ORDER VIA PO, PATIENT TOLERATED WELL. MEDS EDUCATION PROVIDED TO PATIENT AND EDUCATED PATIENT ON BP MEDS AND SAFETY PRECAUTION, PATIENT VERBALIZED UNDERSTANDING. WILL REASSESS BP SHORTLY. PATIENT PATIENT AWAKE AND RESTING ON BED AT THIS TIME. DENIED DIZZINESS, SOB AND PAIN. NO SIGNS OF DISTRESS NOTED. TELE MONITOR ATTACHED. SAFETY MEASURES IN PLACE. BED IN LOW POSITION AND CALL LIGHT WITHIN REACH. INSTRUCTED PATIENT TO USE THE CALL LIGHT FOR ANY ASSISTANCE AND PATIENT WAS AWARE.
[2019-03-22] MEDS ORDERED: LISINOPRIL 5 MG TAB PO SCH (09:00)
--- NOTE | 2019-03-22 09:40 | NUR ---
REASSESSED PATIENT'S BP AND RECEIVED 173/100 PULSE 77, NOTIFIED DR MUELLER ON REGARDS. PER DR MUELLER, HE WILL PLACE AN ORDER FOR BP. PATIENT IS RESTING ON BED AT THIS TIME. DENIED DIZZINESS, SOB AND PAIN. NO SIGNS OF DISTRESS NOTED. TELE MONITOR ATTACHED. SAFETY MEASURES IN PLACE. BED IN LOW POSITION AND CALL LIGHT WITHIN REACH. FALL RISK PROTOCOL IN PLACE AND BED ALARM ACTIVATED. INSTRUCTED PATIENT TO USE THE CALL LIGHT FOR ANY ASSISTANCE AND PATIENT WAS AWARE.
[2019-03-22] MEDS ORDERED: LISINOPRIL 10 MG TAB PO SCH (10:00)
[2019-03-22] MEDS ORDERED: METOPROLOL 25 MG TAB PO SCH (10:00)
--- NOTE | 2019-03-22 10:26 | NUR ---
Implementation Specialist Payroll Assessment/Discharge Plan High Risk DC Screen Yes Name: Julieta Vizcaino Home Relationship: daughter Pre-Admission Living Arrangements: Lives Alone Prior ADL Needs Assistance Current Home Health Name/Tel: per patient, does not recall name of home health Current Name/Tel: walker, wheelchair, prn home [facility] Healthcare Decision Maker: Patient Tentative Discharge Plan Summary: Patient is 68 year old female with PMHx COPD and HTN. I met with patient at bedside. Patient was alert and oriented x4. Patient lives alone at home and plans to return home upon discharge. Patient's pcp is Dr. Garcia. Patient stated she has no difficulty obtaining medication from the pharmacy. Patient verified home address: [address] [place] [address]. Patient receives assistance with ADLs from Julieta Vizcaino, her daughter [phone] and also has an [facility] caregiver. Patient stated she utilizes a wheelchair and walker. Patient denies history of mental health and no SI/HI. Patient also reports no history of alcohol/substance use. Patient stated she would like to speak with MD regarding snf placement. Per , he will speak with patient regarding snf placement. Implementation Specialist Payroll and/or Blister Rust Eradicator will follow up as needed. Signature: NAAYELI Zuluaga Date: Mar 22, 2019
--- NOTE | 2019-03-22 10:44 | NUR ---
ADMINISTERED BP MEDS PER MD ORDER VIA PO, PATIENT TOLERATED WELL. MEDS EDUCATION PROVIDED TO PATIENT AND EXPLAINED TO PATIENT THAT HER BP IS HIGH AFTER AM BP MEDS, PATIENT VERBALIZED UNDERSTANDING. PATIENT PATIENT AWAKE AND RESTING ON BED AT THIS TIME. DENIED DIZZINESS, SOB AND PAIN. NO SIGNS OF DISTRESS NOTED. TELE MONITOR ATTACHED. SAFETY MEASURES IN PLACE. FALL RISK PROTOCOL IN PLACE AND BED ALARM ACTIVATED. BED IN LOW POSITION AND CALL LIGHT WITHIN REACH. INSTRUCTED PATIENT TO USE THE CALL LIGHT FOR ANY ASSISTANCE AND PATIENT WAS AWARE.
--- NOTE | 2019-03-22 11:15 | NUR ---
PATIENT IS RESTING ON BED AT THIS TIME. AROUSABLE TO VOICE. DENIED DIZZINESS, SOB AND PAIN. NO SIGNS OF DISTRESS NOTED. TELE MONITOR ATTACHED. SAFETY MEASURES IN PLACE. FALL RISK PROTOCOL IN PLACE AND BED ALARM ACTIVATED. BED IN LOW POSITION AND CALL LIGHT WITHIN REACH. INSTRUCTED PATIENT TO USE THE CALL LIGHT FOR ANY ASSISTANCE AND PATIENT WAS AWARE.
[2019-03-22 12:00] VITALS: BP 155/86
--- NOTE | 2019-03-22 12:03 | NUR ---
PATIENT COMPLAINED 6/10 PAIN ON HER BACK, ADMINISTERED PRN PAIN MED [facility] PER MD ORDER VIA PO, PATIENT TOLERATED WELL. MED EDUCATION PROVIDED TO PATIENT AND PATIENT VERBALIZED UNDERSTANDING. PATIENT PATIENT AWAKE AND RESTING ON BED AT THIS TIME. DENIED DIZZINESS, SOB AND PAIN. NO SIGNS OF DISTRESS NOTED. TELE MONITOR ATTACHED. SAFETY MEASURES IN PLACE. BED IN LOW POSITION AND CALL LIGHT WITHIN REACH. INSTRUCTED PATIENT TO USE THE CALL LIGHT FOR ANY ASSISTANCE AND PATIENT WAS AWARE.
--- NOTE | 2019-03-22 13:07 | NUR ---
ADMINISTERED MED PER MD ORDER VIA PO, PATIENT TOLERATED WELL. MEDS EDUCATION PROVIDED TO PATIENT AND PATIENT VERBALIZED UNDERSTANDING. PATIENT IS RESTING ON BED AT THIS TIME. DENIED DIZZINESS, SOB AND PAIN. NO SIGNS OF DISTRESS NOTED. TELE MONITOR ATTACHED. SAFETY MEASURES IN PLACE. BED IN LOW POSITION AND CALL LIGHT WITHIN REACH. INSTRUCTED PATIENT TO USE THE CALL LIGHT FOR ANY ASSISTANCE AND PATIENT WAS AWARE.
--- NOTE | 2019-03-22 14:47 | NUR ---
ASSISTED PATIENT TO USE THE BEDSIDE COMMODE AND BACK ON BED. NO SIGNS OF DISTRESS NOTED. TELE MONITOR ATTACHED. SAFETY MEASURES IN PLACE. BED IN LOW POSITION AND CALL LIGHT WITHIN REACH. INSTRUCTED PATIENT TO USE THE CALL LIGHT FOR ANY ASSISTANCE AND PATIENT WAS AWARE.
--- NOTE | 2019-03-22 14:52 | NUR ---
PATIENT AWAKE AND TALKING TO DAUGHTER AT BEDSIDE. NO SIGNS OF DISTRESS NOTED. TELE MONITOR ATTACHED. SAFETY MEASURES IN PLACE. BED IN LOW POSITION AND CALL LIGHT WITHIN REACH. INSTRUCTED PATIENT TO USE THE CALL LIGHT FOR ANY ASSISTANCE AND PATIENT WAS AWARE.
--- NOTE | 2019-03-22 15:10 | NUR ---
RECEIVED CRITICAL LAB FOR TROPONIN 0.[address] MUELLER. DR MUELLER WAS AWARE. NO ORDER RECEIVED AT THIS TIME.
[2019-03-22 16:00] VITALS: BP 123/57
--- NOTE | 2019-03-22 16:48 | NUR ---
PATIENT IS AMBULATING AROUND THE HALLWAY WITH DAUGHTER NELIDA. PATIENT IS ABLE TO AMBULATE WITH ASSIST.NO SIGNS OF DISTRESS NOTED. TELE MONITOR ATTACHED.
--- NOTE | 2019-03-22 18:10 | NUR ---
RECEIVED BLOOD CULTURE LAB FOR GRAM POSITIVE GUILLAUME FOR YESENIAI AND REPORTED TO DR LEROY. DR LEROY WAS AWARE AND NO ORDER RECEIVED AT THIS TIME.
--- NOTE | 2019-03-22 19:30 | NUR ---
ENDORSED PATIENT AT BEDSIDE TO WATER REGULATOR AND VALVE REPAIRER NURSE FOR CONTINUITY OF CARE. PATIENT IS IN STABLE CONDITION. SAFETY MEASURES IN PLACE.
--- NOTE | 2019-03-22 19:30 | NUR ---
RECEIVED BEDSIDE REPORT FROM AM SHIFT RN CHRIS, FOR PT'S CONTINUITY OF CARE. PT IS AWAKE IN BED, ON ADDICTION COUNSELOR, IS ON ROOM AIR, HAS RIGHT HAND 20G WITH NS AT 20ML/HR, PT TENDS TO FORGET TO USE CALL LIGHT FOR ASSISTANCE, REORIENTED PT TO HOSPITAL SURROUNDINGS AND USE OF CALL LIGHT, PT VERBALIZED UNDERSTANDING. SAFETY MEASURES IN PLACE, FALL PRECAUTION IN PLACE, AND CALL LIGHT IS WITHIN REACH. WILL MONITOR PT THROUGHOUT SHIFT.
[2019-03-22 20:00] VITALS: BP 161/89
[2019-03-22] MEDS: MORPHINE SULFATE 2 MG/ML SYR IVP PRN (20:08)
[2019-03-22] MEDS: ATORVASTATIN 20 MG TAB PO SCH (20:13)
--- NOTE | 2019-03-22 20:15 | NUR ---
PT C/O OF SEVERE BACK PAIN. ASSISTED PT TO BSC AND TO THE CHAIR FOR HELP WITH RELIEVING PAIN. ADMINISTERED SCHEDULED PO AND SUBQ MEDICATIONS AND PRN PAIN MEDICATION ORDERED. PT TOLERATED THEM WELL. WILL CONTINUE TO MONITOR PT.
--- NOTE | 2019-03-22 20:21 | NUR ---
RECEIVED PATIENT ON ROOM AIR, PULSE OX SAT 100%. PATIENT DENIES SOB/REFUSES TX AT THIS TIME. PRN HHN NOT GIVEN. PT MADE AWARE OF MEDICATION FREQUENCY. NO ACUTE RESPIRATORY DISTRESS NOTED AT THIS TIME. WILL CONTINUE TO MONITOR.
--- NOTE | 2019-03-22 22:00 | NUR ---
PT STATES PAIN STILL AT 8/10. REQUESTED FOR MD FOR HEATING PAD ORDER IF NOT CONTRAINDICATED. MD WILL PUT IN ORDER.
--- NOTE | 2019-03-22 23:13 | NUR ---
HEATING PAD IN PLACE. WILL CONTINUE TO MONITOR PT.
[2019-03-23] VITALS: BP 179/90
[2019-03-23] MEDS: HYDROcodone/APAP 5/325 MG 1 TAB TAB PO PRN ×5 (01:01→18:18)
--- NOTE | 2019-03-23 01:01 | NUR ---
PT C/O UNRELIEVED BACK PAIN. ASSISTED PT TO DIFFERENT POSITIONS AND TO CHAIR WITH NO RELIEF. ADMINISTERED PRN PO PAIN MEDICATION ORDERED. PT TOLERATED IT WELL. HEATING PAD IN PLACE. WILL CONTINUE TO MONITOR PT.
[2019-03-23] MEDS: MORPHINE SULFATE 2 MG/ML SYR IVP PRN ×2 (01:50→20:53)
--- NOTE | 2019-03-23 01:50 | NUR ---
PT C/O OF INCREASING BACK PAIN. REQUESTED FOR PAIN MEDICATION. ADMINISTERED PRN IVP PAIN MEDICATION ORDERED. WILL CONTINUE TO USE NON-PHARMACOLOGICAL TECHNIQUES TO HELP RELIEVE PAIN. WILL CONTINUE TO MONITOR PT.
--- NOTE | 2019-03-23 03:59 | NUR ---
VS CHECKED AND CHARTED. PT STATES PAIN STILL AT 8/10. ASSISTED PT TO THE BSC, PT TOLERATED ACTIVITY WELL. STILL NEED REINFORCEMENT AND REORIENTATION TO USE OF CALL LIGHT. WILL CONTINUE TO MONITOR PT.
[2019-03-23 04:00] VITALS: BP 159/88
[2019-03-23] MEDS: metroNIDAZOLE 250 MG TAB PO SCH ×3 (05:22→20:53)
--- NOTE | 2019-03-23 05:22 | NUR ---
ADMINISTERED SCHEDULED PO MEDICATION ORDERED. PT C/O PAIN AND REQUESTED FOR PAIN MEDICATION. ADMINISTERED PRN PO MEDICATION ORDERED. WILL CONTINUE TO MONITOR PT.
--- NOTE | 2019-03-23 06:10 | NUR ---
PT LYING DOWN ASLEEP WITH NO SIGNS OF DISTRESS. WILL ENDORSE TO AM SHIFT RN FOR PT'S CONTINUITY OF CARE.
--- NOTE | 2019-03-23 07:10 | NUR ---
RECEIVED BEDSIDE REPORT FROM DAIRY HAND NURSE FOR CONTINUITY OF CARE. PATIENT IS AWAKE AND RESTING ON BED AT THIS TIME. PATIENT IS AAOX3 TO NAME,TIME AND PLACE. RESPIRATION EVEN AND UNLABORED ON RA. DENIED PAIN, DIZZINESS AND SOB AT THIS TIME. NO SIGNS OF DISTRESS NOTED. IV ON R HAND 20G, CLEAN AND INTACT, WRAP AROUND WITH KERLIX, INFUSING PER MD ORDER. PATIENT IS CONTINENT AND ABLE TO USE THE BEDSIDE COMMODE WITH ASSIST. SKIN CLEAN AND DRY. HEATED PAD PLACED IN PATIENT'S BACK. DISCUSSED PLAN OF CARE WITH PATIENT AND PATIENT VERBALIZED UNDERSTANDING. TELE MONITOR ATTACHED. FALL RISK PROTOCOL IN PLACE AND BED ALARM ACTIVATED. SAFETY MEASURES IN PLACE. BED IN LOW POSITION AND CALL LIGHT WITHIN REACH. INSTRUCTED PATIENT TO USE THE CALL LIGHT FOR ANY ASSISTANCE AND PATIENT WAS AWARE.
[2019-03-23] MEDS: NACL 0.9% 1,000 ML IV SCH (07:23)
[2019-03-23 07:32] LABS: ANION GAP 11.4 (8-16); CREATININE 0.7 mg/dL (0.6-1.3)
[2019-03-23 07:36] LABS: MAGNESIUM 1.8 mg/dL (1.8-2.4); PHOSPHORUS 3.1 mg/dL (2.5-4.9)
[2019-03-23 07:38] LABS: POTASSIUM 2.4 mmol/L (3.5-5.1)
--- NOTE | 2019-03-23 07:40 | NUR ---
RECEIVED CRITICAL LAB FOR POTASSIUM 2.4 FROM LAB, NOTIFIED DR MUELLER AND DR MUELLER WAS AWARE. PER DR MUELLER, HE WILL INPUT THE ORDER FOR POTASSIUM.
[2019-03-23 08:00] VITALS: BP 162/93
--- NOTE | 2019-03-23 08:05 | NUR ---
RECEIVED CRITICAL LAB FOR TROPONIN 0.156. NOTIFIED DR MUELLER AND DR MUELLER WAS AWARE. NO ORDER RECEIVED AT THIS TIME.
[2019-03-23 08:08] LABS: BASOPHILS % (AUTO) 0.2 % (0.0-2.0); EOSINOPHILS % (AUTO) 0.1 % (0.0-4.0); HEMATOCRIT 41.3 % (36-48); HEMOGLOBIN 13.6 g/dL (12.0-16.0); LYMPHOCYTES % (AUTO) 13.6 % (20.5-51.1); MEAN CORPUSCULAR HEMOGLOBIN 31 pg (27-31); MEAN CORPUSCULAR HGB CONC 33 g/dL (33-37); MEAN CORPUSCULAR VOLUME 92.6 fL (80-94); MONOCYTES # (AUTO) 1.4 K/uL (0.8-1.0); MONOCYTES % (AUTO) 9.4 % (1.7-9.3); NEUTROPHILS # (AUTO) 11.2 K/uL (1.8-7.7); NEUTROPHILS % (AUTO) 76.7 % (42.2-75.2); PLATELET COUNT (AUTO) 181 K/uL (140-450); RED BLOOD CELL COUNT(AUTO) 4.46 MIL/uL (4.20-5.40); WHITE BLOOD COUNT (AUTO) 14.6 K/uL (4.8-10.8)
[2019-03-23] MEDS ORDERED: KCL 20 MEQ/WATER INJ PREMIX 200 ML IV ONE (09:10)
[2019-03-23] MEDS ORDERED: FUROSEMIDE 40 MG TAB PO SCH (09:16)
[2019-03-23] MEDS: FLUoxetine 10 MG CAP PO SCH (09:19)
[2019-03-23] MEDS: LORATADINE 10 MG TAB PO SCH (09:19)
[2019-03-23] MEDS: ASPIRIN 81 MG TAB.CHEW PO SCH (09:20)
[2019-03-23] MEDS: DOCUSATE SODIUM 100 MG GELCAP PO SCH ×2 (09:20→21:14)
[2019-03-23] MEDS: LACTOBACILLUS RHAMNOSUS GG 1 EACH CAP PO SCH (09:21)
[2019-03-23] MEDS: METOPROLOL 25 MG TAB PO SCH ×2 (09:22→20:52)
[2019-03-23] MEDS: LISINOPRIL 20 MG TAB PO SCH (09:25)
--- NOTE | 2019-03-23 09:56 | NUR ---
ADMINISTERED POTASSIUM PER MD ORDER, MED EDUCATION PROVIDED TO PATIENT, PATIENT VERBALIZED UNDERSTANDING. PATIENT IS RESTING ON BED AT THIS TIME. NO SIGNS OF DISTRESS NOTED. SAFETY MEASURES IN PLACE.
--- NOTE | 2019-03-23 10:30 | NUR ---
PATIENT COMPLAINED THAT POTASSIUM IS BURNING HER IV SITE, EXPLAINED TO PATIENT AND REDUCE THE INFUSING RATED TO 30ML/HR, PATIENT SAID "OH PLEASE! IT HURTS SO BAD THAT I WANT TO PULL OUT THE IV." APOLOGIZED TO PATIENT. PATIENT IS RESTING ON BED AT THIS TIME. NO SIGNS OF DISTRESS NOTED. TELE MONITOR ATTACHED. SAFETY MEASURES IN PLACE.
--- NOTE | 2019-03-23 11:34 | NUR ---
PATIENT IS AWAKE AND RESTING ON BED AT THIS TIME. DENIED PAIN, SOB, DIZZINESS, COMPLAINED OF MILD UNCOMFORTABLENESS ON HER IV SITE. NO SIGNS OF DISTRESS NOTED. TELE MONITOR ATTACHED. FALL RISK PROTOCOL IN PLACE AND BED ALARM ACTIVATED. SAFETY MEASURES IN PLACE. BED IN LOW POSITION AND CALL LIGHT WITHIN REACH. INSTRUCTED PATIENT TO USE THE CALL LIGHT FOR ANY ASSISTANCE AND PATIENT WAS AWARE.
[2019-03-23 12:00] VITALS: BP 151/82
--- NOTE | 2019-03-23 13:38 | NUR ---
ADMINISTERED SCHEDULED MEDS PER MD ORDER, MEDS EDUCATION PROVIDED TO PATIENT AND PATIENT VERBALIZED UNDERSTANDING. PATIENT COMPLAINED SHE HAS 5/10 PAIN ON HER LOWER BACK, REPOSITIONED PATIENT AND PLACED HEATED PAD ON PATIENT'S BACK, PATIENT STATED "THE PAIN JUST WON'T GO AWAY." PATIENT ALSO COMPLAINED THE POTASSIUM IS BURNING HER IV SITE, EXPLAINED TO PATIENT'S THAT INFUSING RATE HAS BEEN REDUCE, PATIENT SAID OK. ADMINISTERED PRN PAIN MED, PATIENT TOLERATED WELL. PATIENT IS RESTING ON BED AT THIS TIME. TELE MONITOR ATTACHED. FALL RISK PROTOCOL IN PLACE AND BED ALARM ACTIVATED. SAFETY MEASURES IN PLACE. BED IN LOW POSITION AND CALL LIGHT WITHIN REACH. INSTRUCTED PATIENT TO USE THE CALL LIGHT FOR ANY ASSISTANCE AND PATIENT WAS AWARE.
--- NOTE | 2019-03-23 15:45 | NUR ---
ASSISTED PATIENT TO USE THE BEDSIDE COMMODE AND BACK ON BED. PLACED HEATED PAD ON PATIENT'S BACK. NO SIGNS OF DISTRESS NOTED. TELE MONITOR ATTACHED. FALL RISK PROTOCOL IN PLACE AND BED ALARM ACTIVATED. SAFETY MEASURES IN PLACE. BED IN LOW POSITION AND CALL LIGHT WITHIN REACH. INSTRUCTED PATIENT TO USE THE CALL LIGHT FOR ANY ASSISTANCE AND PATIENT WAS AWARE.
[2019-03-23 16:00] VITALS: BP 155/84
--- NOTE | 2019-03-23 18:18 | NUR ---
PATIENT COMPLAINED SHE HAS 5/10 PAIN ON HER BACK, REPOSITIONED PATIENT AND PLACED THE HEAT PAT, PATIENT SAID "WITH THE HEATED PAD, I STILL FEEL VERY BAD PAIN." ADMINISTERED PRN PAIN MED PER MD ORDER, PATIENT TOLERATED WELL. MED EDUCATION PROVIDED TO PATIENT AND PATIENT SAID OK. PATIENT IS AWAKE AND RESTING ON BED AT THIS TIME. NO SIGNS OF DISTRESS NOTED. TELE MONITOR ATTACHED. SAFETY MEASURES IN PLACE. BED IN LOW POSITION AND CALL LIGHT WITHIN REACH. INSTRUCTED PATIENT TO USE THE CALL LIGHT FOR ANY ASSISTANCE AND PATIENT WAS AWARE.
--- NOTE | 2019-03-23 18:40 | NUR ---
PATIENT AWAKE AND WATCHING TV ON BED AT THIS TIME. NO SIGNS OF DISTRESS NOTED. TELE MONITOR ATTACHED. SAFETY MEASURES IN PLACE. BED IN LOW POSITION AND CALL LIGHT WITHIN REACH. INSTRUCTED PATIENT TO USE THE CALL LIGHT FOR ANY ASSISTANCE AND PATIENT WAS AWARE.
--- NOTE | 2019-03-23 19:30 | NUR ---
ENDORSED PATIENT AT BEDSIDE TO CAD TECHNICIAN NURSE FOR CONTINUITY OF CARE. PATIENT IS IN STABLE CONDITION. TELE MONITOR ATTACHED. SAFETY MEASURES IN PLACE.
--- NOTE | 2019-03-23 19:30 | NUR ---
RECEIVED BEDSIDE REPORT FROM AM SHIFT RN CHRIS, FOR PT'S CONTINUITY OF CARE. PT IS IN BED, AWAKE, WATCHING TV, IS ON ROOM AIR, ON KITMAN, HAS RIGHT HAND 20G WITH NS AT 20 ML/HR, C/O LINGERING BACK PAIN. PT TEACHING GIVEN REGARDING PAIN MEDICATION. PT VERBALIZED UNDERSTANDING. SAFETY MEASURES IN PLACE. CALL LIGHT IS WITHIN REACH. WILL MONITOR PT THROUGHOUT SHIFT.
--- NOTE | 2019-03-23 19:45 | NUR ---
COMPUTER SECURITY MANAGER PRINT OUT SR PVC. NOTIFIED MD. NO NEW ORDER. WILL CONTINUE TO MONITOR PT.
[2019-03-23 20:00] VITALS: BP 141/87
--- NOTE | 2019-03-23 20:16 | NUR ---
RECEIVED PATIENT ON ROOM AIR, PULSE OX SAT 97%. PATIENT DENIES SOB. PRN HHN NOT INDICATED AT THIS TIME. NO RESPIRATORY DISTRESS NOTED AT THIS TIME. WILL CONTINUE TO MONITOR.
[2019-03-23] MEDS: ATORVASTATIN 20 MG TAB PO SCH (20:52)
--- NOTE | 2019-03-23 21:14 | NUR ---
ADMINISTERED SCHEDULED PO AND SUBQ MEDICATIONS ORDERED. PT C/O SEVERE BACK PAIN AND REQUESTED FOR IV PUSH MEDICATION. ADMINISTERED PRN IV PUSH PAIN MEDICATION ORDERED. HEATING PAD IN PLACE, PT TEACHING GIVEN RE: NON-PHARMACOLOGICAL TECHNIQUES TO RELIEVE PAIN. PT VERBALIZED UNDERSTANDING. WILL CONTINUE TO MONITOR PT.
[2019-03-24] VITALS: BP 148/70
[2019-03-24] MEDS: HYDROcodone/APAP 5/325 MG 1 TAB TAB PO PRN ×3 (02:08→19:00)
--- NOTE | 2019-03-24 02:08 | NUR ---
PT C/O UNRELIEVED BACK PAIN. ADMINISTERED PRN PO PAIN MEDICATION ORDERED. WILL CONTINUE TO MONITOR PT.
[2019-03-24 04:00] VITALS: BP 155/82
--- NOTE | 2019-03-24 04:30 | NUR ---
VS CHECKED AND CHARTED. ASSISTED PT TO THE BSC. NO SIGNS OF DISTRESS, NO C/O PAIN. WILL CONTINUE TO MONITOR PT.
[2019-03-24 05:40] LABS: BASOPHILS % (AUTO) 0.4 % (0.0-2.0); EOSINOPHILS # (AUTO) 0.1 K/uL (0-0.4); EOSINOPHILS % (AUTO) 0.4 % (0.0-4.0); HEMATOCRIT 40.7 % (36-48); HEMOGLOBIN 13.4 g/dL (12.0-16.0); LYMPHOCYTES # (AUTO) 3.3 K/uL (2.5-16.5); LYMPHOCYTES % (AUTO) 24.7 % (20.5-51.1); MEAN CORPUSCULAR HEMOGLOBIN 31 pg (27-31); MEAN CORPUSCULAR HGB CONC 33 g/dL (33-37); MEAN CORPUSCULAR VOLUME 93.1 fL (80-94); MONOCYTES # (AUTO) 1.3 K/uL (0.8-1.0); MONOCYTES % (AUTO) 9.8 % (1.7-9.3); NEUTROPHILS # (AUTO) 8.5 K/uL (1.8-7.7); NEUTROPHILS % (AUTO) 64.7 % (42.2-75.2); PLATELET COUNT (AUTO) 171 K/uL (140-450); RED BLOOD CELL COUNT(AUTO) 4.38 MIL/uL (4.20-5.40); RED CELL DISTRIBUTION WIDTH 15.5 % (11.6-13.7); WHITE BLOOD COUNT (AUTO) 13.2 K/uL (4.8-10.8)
[2019-03-24 06:15] LABS: MAGNESIUM 1.9 mg/dL (1.8-2.4); PHOSPHORUS 4.3 mg/dL (2.5-4.9)
[2019-03-24 06:16] LABS: ANION GAP 10.9 (8-16); CARBON DIOXIDE 31.8 mmol/L (21-32); CREATININE 0.8 mg/dL (0.6-1.3)
--- NOTE | 2019-03-24 06:40 | NUR ---
RECEIVED CALL FOR CRITICAL LAB VALUE POTASSIUM - 2.7. NOTIFIED MD AND NO NEW ORDERS AT THIS TIME. PT AWAKE IN BED, WITH NO SIGNS OF DISTRESS. WILL ENDORSE TO AM SHIFT RN FOR PT'S CONTINUITY OF CARE.
[2019-03-24 06:41] LABS: POTASSIUM 2.7 mmol/L (3.5-5.1)
--- NOTE | 2019-03-24 07:20 | NUR ---
RECEIVED BEDSIDE REPORT FROM CEO [place] NURSE, PT IS AWAKE AND ALERT, NO S/S OF ACUTE DISTRESS NOTED. PT IS ON ROOM AIR, SKIN INTACT. IV SITE IN THE R HAND 20 G, INFUSING NS 20 ML/HR. COMMODE AT BEDSIDE. FALL PRECAUTIONS IN PLACE, CALL LIGHT WITHIN REACH. WILL CONTINUE TO MONITOR.
[2019-03-24] MEDS: NACL 0.9% 1,000 ML IV SCH (07:23)
[2019-03-24 08:00] VITALS: BP 134/88
[2019-03-24] MEDS: METOPROLOL 25 MG TAB PO SCH ×2 (08:56→20:40)
[2019-03-24] MEDS: ASPIRIN 81 MG TAB.CHEW PO SCH (08:56)
[2019-03-24] MEDS: LISINOPRIL 20 MG TAB PO SCH (08:57)
[2019-03-24] MEDS: LACTOBACILLUS RHAMNOSUS GG 1 EACH CAP PO SCH (08:57)
[2019-03-24] MEDS: LORATADINE 10 MG TAB PO SCH (08:57)
[2019-03-24] MEDS: FLUoxetine 10 MG CAP PO SCH (08:58)
[2019-03-24] MEDS: MORPHINE SULFATE 2 MG/ML SYR IVP PRN ×3 (08:58→17:08)
[2019-03-24] MEDS: DOCUSATE SODIUM 100 MG GELCAP PO SCH ×2 (09:00→20:40)
[2019-03-24] MEDS ORDERED: IBUPROFEN 800 MG TAB PO SCH (09:00)
[2019-03-24] MEDS ORDERED: FUROSEMIDE 40 MG TAB PO SCH (09:00)
--- NOTE | 2019-03-24 09:20 | NUR ---
AM MEDS ADMINISTERED, PT TOLERATED WELL. PT C/O 10 BACK PAIN, IV MORPHINE PRN ADMINISTERED. WILL REASSESS WITHIN AN HOUR.
--- NOTE | 2019-03-24 09:21 | NUR ---
PT HAVING PHYSICAL THERAPY.
[2019-03-24 12:00] VITALS: BP 141/89
[2019-03-24] MEDS ORDERED: POTASSIUM CHLORIDE 10 MEQ TABER PO SCH (12:30)
[2019-03-24] MEDS ORDERED: POTASSIUM CHLORIDE 40 MEQ, LIDOCAINE MPF 1% 25 MG in NACL 0.9% 250 ML IV SCH (14:00)
[2019-03-24] MEDS ORDERED: ASPI81CT95 PO (14:21)
[2019-03-24] MEDS ORDERED: ACET-9525 PO (14:21)
[2019-03-24] MEDS ORDERED: FURO40TA9 PO (14:21)
[2019-03-24] MEDS ORDERED: LACT10CA PO ×3 (14:21→16:32)
[2019-03-24] MEDS ORDERED: LISI-420 PO (14:21)
[2019-03-24] MEDS ORDERED: ATOR20TA40 PO (14:21)
[2019-03-24] MEDS ORDERED: MECL-272 PO (14:21)
[2019-03-24] MEDS ORDERED: MORP2SOL18 IVP (14:21)
[2019-03-24] MEDS ORDERED: ACET-1182 PO (14:21)
[2019-03-24] MEDS ORDERED: METO25TA PO (14:21)
[2019-03-24] MEDS ORDERED: FLUO10CA24 PO (14:21)
[2019-03-24] MEDS ORDERED: ONDA2SOL45 IM/IVP (14:22)
[2019-03-24 16:00] VITALS: BP 148/88
--- NOTE | 2019-03-24 16:10 | NUR ---
SPOKE WITH [facility], PT'S FENCE ERECTOR TIME IS WITHIN 1-2 HOURS TO [facility].
--- NOTE | 2019-03-24 16:12 | NUR ---
DC PLANNING PER MD ORDER PT NEEDS TO GO TO SNF , CALLED [facility] SPOKE WITH [facility], FAXED ALL THE PAPER WORK , ACCEPTED PT AND PT CAN GO TO ROOM 218C AND [facility] WILL ARRANGE TRANSPORT. CEMETERY COUNSELOR TIME WITH IN ONE HR NOTIFIED MEGAN JORGENSEN
--- NOTE | 2019-03-24 16:23 | NUR ---
PHONE REPORT GIVEN TO JAMEEL NOLAN, AT [facility] FOR PT'S TRANSFER TODAY.
[2019-03-24 17:13] LABS: BASOPHILS # (AUTO) 0.1 K/uL (0.00-0.22); BASOPHILS % (AUTO) 0.7 % (0.0-2.0); EOSINOPHILS % (AUTO) 0.3 % (0.0-4.0); HEMOGLOBIN 14.2 g/dL (12.0-16.0); LYMPHOCYTES # (AUTO) 2.3 K/uL (2.5-16.5); LYMPHOCYTES % (AUTO) 17.5 % (20.5-51.1); MEAN CORPUSCULAR HEMOGLOBIN 31 pg (27-31); MEAN CORPUSCULAR HGB CONC 33 g/dL (33-37); MEAN CORPUSCULAR VOLUME 93.2 fL (80-94); MONOCYTES # (AUTO) 1.1 K/uL (0.8-1.0); MONOCYTES % (AUTO) 8.1 % (1.7-9.3); NEUTROPHILS # (AUTO) 9.7 K/uL (1.8-7.7); NEUTROPHILS % (AUTO) 73.4 % (42.2-75.2); PLATELET COUNT (AUTO) 195 K/uL (140-450); RED BLOOD CELL COUNT(AUTO) 4.62 MIL/uL (4.20-5.40); RED CELL DISTRIBUTION WIDTH 15.5 % (11.6-13.7); WHITE BLOOD COUNT (AUTO) 13.2 K/uL (4.8-10.8)
--- NOTE | 2019-03-24 17:18 | NUR ---
[facility] FOR TRANSFER. Addendum: 03/24/19 at 1829 by Ava Peña RN [facility]
[2019-03-24 17:34] LABS: ANION GAP 10.6 (8-16); CARBON DIOXIDE 33.7 mmol/L (21-32); CREATININE 1.2 mg/dL (0.6-1.3); POTASSIUM 3.3 mmol/L (3.5-5.1)
--- NOTE | 2019-03-24 18:30 | NUR ---
PT WAS EXPLAINED THAT SHE IS TRANSFERRING TO [facility] FOR PHYSICAL THERAPY AND MEDICATION MANAGEMENT, AND HAS VERBALIZED UNDERSTANDING.
--- NOTE | 2019-03-24 19:25 | NUR ---
PT ENDORSED TO ELECTRIC MILKERS INSTALLER NURSE IN STABLE CONDITION.
--- NOTE | 2019-03-24 19:27 | NUR ---
RECEIVED REPORT FROM AM SHIFT NURSE. PATIENT FOR DISCHARGE TO [facility]. AWAITING FOR TRANSPORT. NO APPARENT DISTRESS NOTED. BED ON LOW POSITION. CALL LIGHT WITHIN REACH. WILL CONTINUE TO MONITOR.
[2019-03-24 20:00] VITALS: BP 141/86
[2019-03-24] MEDS: ATORVASTATIN 20 MG TAB PO SCH (20:40)
--- NOTE | 2019-03-24 21:00 | NUR ---
DUE MEDICATIONS GIVEN ORDERED. NO APPARENT DISTRESS NOTED. STILL AWAITING FOR TRANSPORT. WILL CONTINUE TO MONITOR.
--- NOTE | 2019-03-24 21:32 | NUR ---
RECEIVED PATIENT ON ROOM AIR, PULSE OX SAT 100%. PATIENT DENIES SOB AT THIS TIME. PRN HHN NOT INDICATED. RESPIRATIONS EVEN AND UNLABORED, NO DISTRESS NOTED. WILL CONTINUE TO MONITOR.
--- NOTE | 2019-03-24 22:55 | NUR ---
PICKED UP BY [facility] TRANSPORT VIA GURNEY TO [facility] [address]. ENDORSED TO TRANSPORT IN STABLE CONDITION.
== END 2019-03-24 22:55 | DRG 917 ==
LOC: MED 05:11 → MTU 07:23
PROVIDERS: ADMIT General Practice; ATTEND General Practice
DX: T48.201A Poisoning by unspecified drugs acting on muscles, accidental (unintentional), initial encounter (principal); I21.A1 Myocardial infarction type 2; I50.43 Acute on chronic combined systolic (congestive) and diastolic (congestive) heart failure; G92 Toxic encephalopathy; R65.10 Systemic inflammatory response syndrome (SIRS) of non-infectious origin without acute organ dysfunction; J98.11 Atelectasis; G90.8 Other disorders of autonomic nervous system; I16.0 Hypertensive urgency; E78.00 Pure hypercholesterolemia, unspecified; I11.0 Hypertensive heart disease with heart failure; F19.10 Other psychoactive substance abuse, uncomplicated; J44.9 Chronic obstructive pulmonary disease, unspecified; E83.39 Other disorders of phosphorus metabolism; Z60.2 Problems related to living alone; E83.42 Hypomagnesemia; E87.6 Hypokalemia; F32.9 Major depressive disorder, single episode, unspecified; E78.5 Hyperlipidemia, unspecified; I25.10 Atherosclerotic heart disease of native coronary artery without angina pectoris; E66.9 Obesity, unspecified; Z68.30 Body mass index [BMI] 30.0-30.9, adult; Z71.3 Dietary counseling and surveillance; I69.334 Monoplegia of upper limb following cerebral infarction affecting left non-dominant side; Z79.899 Other long term (current) drug therapy; Z80.9 Family history of malignant neoplasm, unspecified; Y92.89 Other specified places as the place of occurrence of the external cause
CPT/HCPCS: 36415; 70450; 71045; 80048; 80053; 80305; 81003; 82140; 82150; 83036; 83605; 83690; 83735; 83880; 84100; 84134; 84436; 84443; 84484; 85025; 85610; 85730; 87040; 87081; 87086; 93005; 93880; 96374; 97110; 97116; 97161-GP; 97530; 99291; J0696; J1644; J2001; J2270; J2405; J3475; J3480; J7030; J7060; J7620; Q0092

== ENCOUNTER 2021-02-01 19:30 | Inpatient (IN) | payer OTHER ==
[~2021-02-01] VITALS: Ht 172.7 cm; Wt 99.8 kg
[2021-02-01 19:30] VITALS: BP 70/26
[~2021-02-01 19:30] MED LIST changes: +ACET-1182 PO; +ACET-9525 PO; +ASPI81CT95 PO; +ATOR20TA40 PO; -DOCU-299 PO; -FLUO10CA21 PO; +FLUO10CA25 PO; +FURO40TA9 PO; -GABA400C PO; +LACT10CA PO; +LISI20TA29 PO; -LOSA50TA66 PO; -MECL-272 PO; +MECL-311 PO; +METO25TA PO; -MONT10TA35 PO; +ONDA2SOL45 IM/IVP; -SIMV20TA1 PO; -TIZA4TAB11 PO; -TRAZ-343 PO; -VITAMIN D PO
--- NOTE | 2021-02-01 19:30 | NUR ---
PT BROUGHT TO BED 9 VIA [facility]
--- NOTE | 2021-02-01 19:53 | NUR ---
70 yo f biba with c/c of weakness x3days. pt is a&o x4, stated her son called because she hasnt been feeling good for 3days. - n/v/d. -sob, fever. pt is a poor historian. pt was asking for pain medication for her back pain 12/21. hx: chf, chronic back pain rx:norco allerg denies
[2021-02-01] MEDS ORDERED: PIPERACILLIN/TAZOBACTAM 4.5 GM in DEXTROSE 5% 100 ML IV ONE (19:55)
[2021-02-01] MEDS ORDERED: NACL 0.9% 1,000 ML IV ONE (20:00)
[2021-02-01] MEDS ORDERED: PIPERACILLIN/TAZOBACTAM 4.5 GM VIAL IV ONE (20:05)
--- NOTE | 2021-02-01 20:19 | NUR ---
lab at bedside.
[2021-02-01 20:42] LABS: BASOPHILS # (AUTO) 0.1 K/uL (0.00-0.22); BASOPHILS % (AUTO) 0.7 % (0.0-2.0); EOSINOPHILS % (AUTO) 0.5 % (0.0-4.0); HEMATOCRIT 31.6 % (36-48); HEMOGLOBIN 10.7 g/dL (12.0-16.0); LYMPHOCYTES # (AUTO) 2.7 K/uL (2.5-16.5); LYMPHOCYTES % (AUTO) 25.6 % (20.5-51.1); MEAN CORPUSCULAR HEMOGLOBIN 31 pg (27-31); MEAN CORPUSCULAR HGB CONC 34 g/dL (33-37); MONOCYTES # (AUTO) 0.9 K/uL (0.8-1.0); MONOCYTES % (AUTO) 8.2 % (1.7-9.3); NEUTROPHILS # (AUTO) 6.9 K/uL (1.8-7.7); PLATELET COUNT (AUTO) 145 K/uL (140-450); RED BLOOD CELL COUNT(AUTO) 3.47 MIL/uL (4.20-5.40); RED CELL DISTRIBUTION WIDTH 14.6 % (11.6-13.7); WHITE BLOOD COUNT (AUTO) 10.6 K/uL (4.8-10.8)
--- NOTE | 2021-02-01 20:49 | NUR ---
rad at bedside.
[2021-02-01 20:52] LABS: APPEARANCE,URINE CLEAR (CLEAR); BILIRUBIN,URINE NEGATIVE (NEGATIVE); BLOOD, URINE NEGATIVE (NEGATIVE); COLOR,URINE YELLOW (YELLOW); LEUKOCYTE ESTERASE ,URINE NEGATIVE (NEGATIVE); NITRITE, URINE NEGATIVE (NEGATIVE); UGLUCOSE NEGATIVE (NEGATIVE)
[2021-02-01 21:00] LABS: PROTHROMBIN TIME 11.5 secs (10.8-13.4)
--- NOTE | 2021-02-01 21:00 | NUR ---
DAUGHTER HORACIO GUZMÁN [phone]
--- NOTE | 2021-02-01 21:38 | NUR ---
provided pt with cranberry juice and a warm blanket.all needs met at this time.
[2021-02-01 21:42] LABS: ALBUMIN 2.4 g/dL (3.4-5.0); ANION GAP 14.2 (8-16); ASPARTATE AMINOTRANSFERASE 12 U/L (15-37); CARBON DIOXIDE 24.7 mmol/L (21-32); CHLORIDE 95 mmol/L (98-107); CREATININE 2.7 mg/dL (0.6-1.3); GLUCOSE 120 mg/dL (74-106); LIPASE 59 U/L (73-393); SODIUM SERUM 131 mmol/L (136-145); TOTAL BILIRUBIN 0.2 mg/dL (0.0-1.0); UREA NITROGEN, BLOOD 37 mg/dL (7-18)
[2021-02-01 21:46] LABS: CREATINE KINASE MB 1.6 ng/mL (0-3.6)
[2021-02-01 22:14] LABS: POTASSIUM 2.9 mmol/L (3.5-5.1)
[2021-02-01] MEDS ORDERED: POTASSIUM CHLORIDE 10 MEQ TABER PO ONE (22:20)
--- NOTE | 2021-02-01 22:28 | NUR ---
pt is awake and alert. provided with extra cranberry juice. all needs met at this time. bed locked in lowest position, side rails x2.
[2021-02-01] MEDS ORDERED: NACL 0.9% 500 ML IV ONE (22:30)
[2021-02-01] MEDS ORDERED: ACETAMINOPHEN 325 MG TAB PO PRN (22:35)
[2021-02-01] MEDS ORDERED: MAG SULF 2000 MG/WATER PREMIX 50 ML IV PRN (22:35)
[2021-02-01] MEDS ORDERED: ONDANSETRON 4 MG/2 ML VIAL IM/IVP PRN (22:35)
[2021-02-01] MEDS ORDERED: MECLIZINE 25 MG TAB PO PRN (22:35)
[2021-02-01] MEDS ORDERED: SODIUM PHOS / POTASSIUM PHOS 1 PKT PDR PO PRN (22:35)
[2021-02-01] MEDS ORDERED: DOCUSATE SODIUM 100 MG GELCAP PO PRN (22:35)
[2021-02-01] MEDS ORDERED: POTASSIUM CHLORIDE 40 MEQ, LIDOCAINE MPF 1% 25 MG in NACL 0.9% 250 ML IV PRN (22:35)
--- NOTE | 2021-02-01 22:52 | NUR ---
pt continues in stable condition. bp rising.
[2021-02-01] MEDS ORDERED: GABA400C PO (23:04)
[2021-02-01 23:05] LABS: MAGNESIUM 1.5 mg/dL (1.8-2.4); PHOSPHORUS 3.9 mg/dL (2.5-4.9)
--- NOTE | 2021-02-01 23:40 | NUR ---
Patient will be admitted to care of . Admited to TELE. Will go to [id number]. Belongings list completed. Report to JAMEEL VERDUZCO.
[2021-02-02] MEDS ORDERED: PIPERACILLIN/TAZOBACTAM 2.25 GM in DEXTROSE 5% 50 ML IV SCH ×2
[2021-02-02] MEDS: NACL 0.9% 1,000 ML IV SCH ×3 (01:00→18:48)
[2021-02-02 01:15] VITALS: BP 102/65
[2021-02-02] MEDS: HYDROcodone/APAP 5/325 MG 1 TAB TAB PO PRN ×3 (01:53→20:40)
--- NOTE | 2021-02-02 02:17 | NUR ---
the pateint was admitted for general weakness , she has hx of CHF , HTN , CVA, DM. CHRONIC LOW BACK PAIN, She has hypokalemia k 2.9 and hypotension she is receiving NS 0.9% at 100cc/h , she states that she had pain 7 on scale 0-10., Narco was administered, she sleeps comfortable in her bed .comfort and safety measures are provided. call light is in reach
[2021-02-02 04:00] VITALS: BP 114/68
[2021-02-02 07:24] LABS: BASOPHILS % (AUTO) 0.4 % (0.0-2.0); EOSINOPHILS # (AUTO) 0.1 K/uL (0-0.4); EOSINOPHILS % (AUTO) 0.5 % (0.0-4.0); HEMATOCRIT 35.7 % (36-48); HEMOGLOBIN 11.7 g/dL (12.0-16.0); LYMPHOCYTES # (AUTO) 2.9 K/uL (2.5-16.5); LYMPHOCYTES % (AUTO) 24.5 % (20.5-51.1); MEAN CORPUSCULAR HEMOGLOBIN 30 pg (27-31); MEAN CORPUSCULAR HGB CONC 33 g/dL (33-37); MEAN CORPUSCULAR VOLUME 92.9 fL (80-94); MONOCYTES # (AUTO) 0.8 K/uL (0.8-1.0); NEUTROPHILS # (AUTO) 8.1 K/uL (1.8-7.7); NEUTROPHILS % (AUTO) 67.6 % (42.2-75.2); PLATELET COUNT (AUTO) 175 K/uL (140-450); RED BLOOD CELL COUNT(AUTO) 3.85 MIL/uL (4.20-5.40); RED CELL DISTRIBUTION WIDTH 14.6 % (11.6-13.7)
--- NOTE | 2021-02-02 07:44 | NUR ---
RECEIVED BEDSIDE REPORT FROM DOCTOR'S ASSISTANT NURSE. PATIENT IN BED SLEEPING ON LEFT SIDE, HOB 30 DEGREES, ANSWERS TO NAME, ABLE TO MAKE NEEDS KNOWN. BREATHING EVEN AND UNLABORED, NO SIGNS OF ACUTE DISTRESS NOTED ON RA. RH 20G INFUSING NS @ 100 ML/HR. CORTES CATHETER IN PLACE, SAFETY MEASURES IN PLACE.
[2021-02-02 07:46] LABS: CARBON DIOXIDE 24.2 mmol/L (21-32); CHLORIDE 98 mmol/L (98-107); CREATININE 2.1 mg/dL (0.6-1.3); GLUCOSE 107 mg/dL (74-106); POTASSIUM 3.2 mmol/L (3.5-5.1); SODIUM SERUM 134 mmol/L (136-145); UREA NITROGEN, BLOOD 31 mg/dL (7-18)
[2021-02-02 08:00] VITALS: BP 118/68
--- NOTE | 2021-02-02 08:28 | NUR ---
PATIENT DAUGHTER, NELIDA CALLED. UPDATED ON PATIENT CONDITION. ALL QUESTIONS ANSWERED AT THIS TIME.
--- NOTE | 2021-02-02 08:37 | NUR ---
PATIENT HAS BEEN SCREENED AND CATEGORIZED LOW NUTRITION RISK. PATIENT WILL BE SEEN WITHIN 7 DAYS OF ADMISSION. 02/08/[address]
[2021-02-02] MEDS: ASPIRIN 81 MG TAB.CHEW PO SCH (09:48)
[2021-02-02] MEDS: METOPROLOL 25 MG TAB PO SCH ×2 (09:48→21:59)
[2021-02-02] MEDS: PANTOPRAZOLE 40 MG INJ VIAL IVP SCH (09:48)
[2021-02-02] MEDS: lisinopriL 20 MG TAB PO SCH (09:49)
[2021-02-02] MEDS: FLUoxetine 10 MG CAP PO SCH (09:49)
[2021-02-02] MEDS: MORPHINE SULFATE 2 MG/ML SYR IVP PRN ×3 (10:20→22:16)
[2021-02-02] MEDS ORDERED: NAPROXEN 500 MG TAB PO PRN (10:30)
[2021-02-02] MEDS: LIDOCAINE 5% 1 EA PATCH TP SCH (11:42)
[2021-02-02 12:00] VITALS: BP 115/56
[2021-02-02 16:00] VITALS: BP 95/53
--- NOTE | 2021-02-02 16:27 | NUR ---
PATIENT SON, ELO CALLED, UPDATED ON PATIENT STATUS, ALL QUESTIONS ANSWERED. HE WAS ALSO ABLE TO SPEAK TO HIS MOTHER AT THIS TIME VIA TELEPHONE.
--- NOTE | 2021-02-02 19:53 | NUR ---
ENDORSED TO NIGHTSHIFT NURSE FOR CONTINUITY OF CARE. PATIENT STABLE AT THIS TIME.
[2021-02-02 21:04] VITALS: BP 110/69
[2021-02-02] MEDS: ATORVASTATIN 20 MG TAB PO SCH (21:58)
--- NOTE | 2021-02-02 22:57 | NUR ---
I RECEIVED PT FROM OUT GOING NURSE , PT IS ALERT ORIENTED X4 C/O BACK PAIN NORCO IS GIVEN ON RA CLEAR LUNGS , IN IVF IV KCL, SKIN INTACT , VSS,AT 2250 SAID NORCO DID NOT WORK I GAVE MORPHINE IVP SAID IT HAD GOOD EFFECT
[2021-02-03 01:05] VITALS: BP 128/69
[2021-02-03] MEDS: HYDROcodone/APAP 5/325 MG 1 TAB TAB PO PRN ×4 (03:48→21:24)
[2021-02-03 04:21] VITALS: BP 140/74
[2021-02-03] MEDS: NACL 0.9% 1,000 ML IV SCH ×2 (04:35→14:35)
[2021-02-03] MEDS: MORPHINE SULFATE 2 MG/ML SYR IVP PRN (07:03)
--- NOTE | 2021-02-03 07:07 | NUR ---
PT C/O PAIN MANY TIMES I GAVE MORPHINR X2 AND NORCOX2 VSS SR
[2021-02-03 07:31] LABS: ANION GAP 11.4 (8-16); CARBON DIOXIDE 26.6 mmol/L (21-32); CHLORIDE 105 mmol/L (98-107); CREATININE 1.2 mg/dL (0.6-1.3); GLUCOSE 90 mg/dL (74-106); SODIUM SERUM 139 mmol/L (136-145); UREA NITROGEN, BLOOD 17 mg/dL (7-18)
[2021-02-03 07:33] LABS: BASOPHILS # (AUTO) 0.1 K/uL (0.00-0.22); BASOPHILS % (AUTO) 0.7 % (0.0-2.0); EOSINOPHILS # (AUTO) 0.1 K/uL (0-0.4); EOSINOPHILS % (AUTO) 0.6 % (0.0-4.0); HEMATOCRIT 33.1 % (36-48); HEMOGLOBIN 11.2 g/dL (12.0-16.0); LYMPHOCYTES # (AUTO) 3.2 K/uL (2.5-16.5); LYMPHOCYTES % (AUTO) 35.1 % (20.5-51.1); MEAN CORPUSCULAR HEMOGLOBIN 31 pg (27-31); MEAN CORPUSCULAR HGB CONC 34 g/dL (33-37); MEAN CORPUSCULAR VOLUME 92.2 fL (80-94); MONOCYTES # (AUTO) 0.7 K/uL (0.8-1.0); MONOCYTES % (AUTO) 8.1 % (1.7-9.3); NEUTROPHILS % (AUTO) 55.5 % (42.2-75.2); PLATELET COUNT (AUTO) 154 K/uL (140-450); RED BLOOD CELL COUNT(AUTO) 3.59 MIL/uL (4.20-5.40); RED CELL DISTRIBUTION WIDTH 14.7 % (11.6-13.7); WHITE BLOOD COUNT (AUTO) 9.1 K/uL (4.8-10.8)
[2021-02-03 08:00] VITALS: BP 124/70
[2021-02-03] MEDS: LIDOCAINE 5% 1 EA PATCH TP SCH ×2 (09:00→10:01)
[2021-02-03] MEDS: PANTOPRAZOLE 40 MG INJ VIAL IVP SCH (09:39)
[2021-02-03] MEDS: METOPROLOL 25 MG TAB PO SCH ×2 (09:42→21:23)
[2021-02-03] MEDS: ASPIRIN 81 MG TAB.CHEW PO SCH (09:42)
[2021-02-03] MEDS: lisinopriL 20 MG TAB PO SCH (09:43)
[2021-02-03] MEDS: FLUoxetine 10 MG CAP PO SCH (09:43)
[2021-02-03] MEDS ORDERED: LIDOCAINE OINTMENT 5% 35 GM TUBE TP SCH (11:20)
[2021-02-03 12:00] VITALS: BP 100/59
--- NOTE | 2021-02-03 12:48 | NUR ---
DC PLANNING: CM SPOKE WITH THE PATIENT AT BEDSIDE. CONFIRMED HER ADDRESS AND PHONE NUMBER PER FACE SHEET. THE PATIENT LIVES IN A SECOND FLOOR APARTMENT BY HERSELF. NO PRIOR H/O HOME HEALTH, HAS DME OF [employer] AND 2 [employer]ERS. P.T. IS RECOMMENDING CONTINUATION OF SERVICES WITH HOME HEALTH, THE PATIENT IS IN AGREEMENT WITH BEING REFERRED TO [facility]. THE PATIENT STATES THAT HER DAUGHTER HELPS HER WITH HOUSE CHORES AND TRANSPORTATION. THE PLAN IS FOR THE PATIENT TO DC HOME WITH HOME HEALTH WHEN CLINICALLY STABLE. CM WILL FOLLOW FOR NEEDS. Addendum: 02/03/21 at 1539 by Cheryl Rodriguez CM DC PLANNING: LOLA SPOKE WITH THO AT [facility], THE PATIENT IS ACCEPTED ON TO SERVICE. ENDORSED THAT THE PATIENT IS EXPECTED TO DC LATER TODAY OR TOMORROW, CM WILL NOTIFY [facility] [place]. CM WILL FOLLOW NEEDED. Addendum: 02/04/21 at 1113 by Cheryl Rodriguez CM DC PLANNING: CM SPOKE WITH BETH AT [facility] TO INFORM HER THAT THE PATIENT WILL DC TODAY. CM WILL FOLLOW NEEDED.
--- NOTE | 2021-02-03 13:52 | NUR ---
PATIENT COMPLAINED OF MODERATE 6/10 PAIN. ADMINISTERED PRN PAIN MEDICATION. PATIENT VERBALIZED UNDERSTANDING. ALL SAFETY PRECAUTIONS IN PLACE. WILL CONTINUE TO MONITOR.
[2021-02-03 16:00] VITALS: BP 127/67
--- NOTE | 2021-02-03 18:47 | NUR ---
PATIENT COMPLAINED OF 6/10 PAIN. ADMINISTERED PRN PAIN MEDICATION. PATIENT VERBALIZED UNDERSTANDING. ALL SAFETY PRECAUTIONS IN PLACE.
[2021-02-03 20:53] VITALS: BP 140/70
[2021-02-03] MEDS ORDERED: ZOLPIDEM 5 MG TAB PO SCH (21:00)
[2021-02-03] MEDS: ATORVASTATIN 20 MG TAB PO SCH (21:23)
--- NOTE | 2021-02-03 23:50 | NUR ---
I RECEIVED PT IN BED ALERT ORIENTED VSS SR ON RA CLEAR LUNG, NO IV ACCECCE ,SKIN INTACT , LATER I GAVE HER AMBIEN AND NORCO FOR BACK PAIN
[2021-02-04] MEDS: NACL 0.9% 1,000 ML IV SCH ×2 (00:35→10:25)
--- NOTE | 2021-02-04 00:54 | NUR ---
PT IS SLEEPING WELL NO PAIN VSS SR
[2021-02-04 00:56] VITALS: BP 135/75
[2021-02-04] MEDS: HYDROcodone/APAP 5/325 MG 1 TAB TAB PO PRN ×2 (03:07→14:31)
--- NOTE | 2021-02-04 05:26 | NUR ---
PT SLEPT WELL AFTER GETTING PAIN MED AND SLEEPING PILL ,VSS , SR
[2021-02-04 06:13] VITALS: BP 135/70
--- NOTE | 2021-02-04 07:20 | NUR ---
RECEIVED REPORT FROM R[place] STAR NURSE. PT STABLE AND RESTING IN BED. NO S/S OF DISTRESS. SYMMETRICAL CHEST RISE AND FALL. PT FLUIDS NOT RUNNING AT THIS TIME, NO IV ACCESS. CALL LIGHT IN REACH. ALL SAFETY MEASURES IN PLACE
[2021-02-04] MEDS ORDERED: GABA400C PO (08:37)
[2021-02-04] MEDS: PANTOPRAZOLE 40 MG INJ VIAL IVP SCH (09:00)
[2021-02-04] MEDS: lisinopriL 20 MG TAB PO SCH (09:29)
[2021-02-04] MEDS: ASPIRIN 81 MG TAB.CHEW PO SCH (09:30)
[2021-02-04] MEDS: FLUoxetine 10 MG CAP PO SCH (09:30)
[2021-02-04] MEDS: METOPROLOL 25 MG TAB PO SCH (09:31)
--- NOTE | 2021-02-04 09:33 | NUR ---
SPOKE TO DAUGHTER NELIDA [phone] REGARDING PATIENT STATUS. DAUGHTER STATES SHE WILL BE HERE AT 2-3 PM
[2021-02-04] MEDS: LIDOCAINE 5% 1 EA PATCH TP SCH (09:35)
--- NOTE | 2021-02-04 11:42 | NUR ---
PT STATED SHE WAS COLD. BROUGHT PT A NEW WARMED BLANKET AND REMOVED SOILED LINEN. TURNED OFF FAN REQUESTED BY PATIENT TO INCREASE TEMP IN ROOM. CALL LIGHT IN REACH. ALL SAFETY MEASURES IN PLACE.
[2021-02-04 12:00] VITALS: BP 133/63
--- NOTE | 2021-02-04 13:16 | NUR ---
PT STATED SHE IS COLD AGAIN. BROUGHT PATIENT WARMED BLANKET. PROMPTED PT TO REPOSITION. ATTEMPTED TO CONTACT DAUGHTER ABOUT DISCHARGE PLAN. AWAITING RESPONSE. CALL LIGHT IN REACH. ALL SAFETY MEASURES IN PLACE.
--- NOTE | 2021-02-04 14:16 | NUR ---
REMOVED CORTES CATHETER FOR PT DISCHARGE. PT TOLERATED WELL. REINFORCED USE OF CALL LIGHT. CALL LIGHT IN REACH. ALL SAFETY MEASURES IN PLACE
--- NOTE | 2021-02-04 14:32 | NUR ---
PATIENT COMPLAINS 6/10 PAIN MEDICATION GIVEN PER MD ORDER. PATIENT EDUCATED AND VERBALIZED UNDERSTANDING.
--- NOTE | 2021-02-04 15:10 | NUR ---
PT DISCHARGED TO DAUGHTER. PT EDUCATED ON MEDICATION, FOLLOW UP INSTRUCTIONS, AND S/S TO NOTIFY MD ABOUT. PATIENT VERBALIZED UNDERSTANDING. PT ID BAND REMOVED. PT BELONGINGS COLLECTED. PT ESCORTED OUTSIDE.
--- NOTE | 2021-02-04 15:29 | NUR ---
PATIENT CHANGED REPOSITIONED. pATIENT DENIED ANITHA GROOMING OR SPONGE BATH STATES SHE WILL GROOM AT HOME.
--- NOTE | 2021-02-04 16:45 | NUR ---
PATIENT DISCHARGE INSTRUCTIONS COMPLETE PATIENT VERBALIZED UNDERSTANDING FOR CONTINUITY OF CARE. TELEMETRY BOX REMOVED AND RETURNED. PATIENT AMBULATED TO WHEEL CHAIR TOLERATED WELL, ARM BAND REMOVED. PATIENT LEFT UNIT VIA WHEEL CHAIR.
== END 2021-02-04 16:55 | disposition home health service (06) | DRG 682 ==
LOC: MED 19:30 → MTU 22:27
PROVIDERS: ADMIT Hospitalist; ATTEND Hospitalist
DX: N17.0 Acute kidney failure with tubular necrosis (principal); G93.41 Metabolic encephalopathy; E43 Unspecified severe protein-calorie malnutrition; E72.20 Disorder of urea cycle metabolism, unspecified; I69.354 Hemiplegia and hemiparesis following cerebral infarction affecting left non-dominant side; E87.1 Hypo-osmolality and hyponatremia; E86.0 Dehydration; I11.0 Hypertensive heart disease with heart failure; D64.9 Anemia, unspecified; E87.6 Hypokalemia; E78.00 Pure hypercholesterolemia, unspecified; I50.9 Heart failure, unspecified; E11.9 Type 2 diabetes mellitus without complications; Z20.822 Contact with and (suspected) exposure to COVID-19; E83.42 Hypomagnesemia; M54.9 Dorsalgia, unspecified; G89.29 Other chronic pain; Z79.82 Long term (current) use of aspirin; Z79.899 Other long term (current) drug therapy; Z68.33 Body mass index [BMI] 33.0-33.9, adult; Z80.9 Family history of malignant neoplasm, unspecified
CPT/HCPCS: 36415; 71045; 80048; 80053; 81003; 82140; 82550; 82553; 83605; 83690; 83735; 83880; 84100; 84484; 85025; 85379; 85610; 85730; 87040; 87081; 87086; 93005; 96365; 97163-GP; 99291; C9113; J1644; J2001; J2270; J2543; J3475; J3480; J7030; J7060

== ENCOUNTER 2021-06-19 15:38 | Inpatient (IN) | payer OTHER, SELFPAY ==
[~2021-06-19] VITALS: Ht 167.6 cm; Wt 99.8 kg
[~2021-06-19 15:38] MED LIST changes: -ACET-9525 PO; -FLUO10CA25 PO; -FURO40TA9 PO; +GABA400C PO; -LACT10CA PO; -ONDA2SOL45 IM/IVP; +PROZ10 PO
[2021-06-19 15:48] VITALS: BP 118/78
--- NOTE | 2021-06-19 15:51 | NUR ---
PT BIBA TO BED 8.
--- NOTE | 2021-06-19 16:00 | NUR ---
DR BROUSSARD AT BEDSIDE.
[2021-06-19] MEDS ORDERED: KETOROLAC 30 MG/ML VIAL IM ONE (16:10)
[2021-06-19] MEDS ORDERED: MORPHINE SULFATE 4 MG/ML SYR IM ONE (16:10)
--- NOTE | 2021-06-19 16:13 | NUR ---
72 Y/O F BIBA FROM HOME C/O LOWER BACK PIAN 02/20 AFTER A FALL YESTERDAY. PAIN AND SWELLING ON R ANCKLE. NKA PMH: COPD, ASTHMA
--- NOTE | 2021-06-19 16:30 | NUR ---
PT TO X-RAY VIA [facility].
--- NOTE | 2021-06-19 16:44 | NUR ---
PT BACK FROM X-RAY.
--- NOTE | 2021-06-19 18:09 | NUR ---
ORDERED A DINNER PLATE FOR THE PT.
[2021-06-19] MEDS ORDERED: ACET-8386 PO (18:18)
--- NOTE | 2021-06-19 18:39 | NUR ---
AMBULATED THE PT PER DR MOELLER ORDER, PT ANABLE TO AMBULATE BY HERSELF,PT VERY UNSTEADY, FALL RISK. PER PT SHE IS IN VERY BAD PAIN. DR BROUSSARD NOTIFIED.
[2021-06-19] MEDS ORDERED: MORPHINE SULFATE 4 MG/ML SYR IVP ONE (18:40)
--- NOTE | 2021-06-19 19:07 | NUR ---
URINE COLLECTED AND WALKED TO LAB
[2021-06-19] MEDS ORDERED: HYDROcodone/APAP 5/325 MG 1 TAB TAB PO PRN ×2 (19:15→23:25)
[2021-06-19] MEDS ORDERED: MORPHINE SULFATE 2 MG/ML SYR IVP PRN (19:15)
--- NOTE | 2021-06-19 19:20 | NUR ---
PT TAKEN TO CT VIA MELISA
--- NOTE | 2021-06-19 19:22 | NUR ---
GAVE REPORT TO ELVIS JORGENSEN.
--- NOTE | 2021-06-19 19:32 | NUR ---
PT RETURN FROM CT
[2021-06-19 20:00] LABS: BILIRUBIN,URINE NEGATIVE (NEGATIVE); BLOOD, URINE NEGATIVE (NEGATIVE); LEUKOCYTE ESTERASE ,URINE NEGATIVE (NEGATIVE); NITRITE, URINE NEGATIVE (NEGATIVE); UGLUCOSE NEGATIVE (NEGATIVE)
[2021-06-19 20:02] LABS: APPEARANCE,URINE CLEAR (CLEAR); COLOR,URINE STRAW (YELLOW)
--- NOTE | 2021-06-19 20:05 | NUR ---
gume/paramjit collected and walked to lab
--- NOTE | 2021-06-19 20:30 | NUR ---
LABS AT BEDSIDE
[2021-06-19 20:51] LABS: BASOPHILS # (AUTO) 0.1 K/uL (0.00-0.22); BASOPHILS % (AUTO) 1.2 % (0.0-2.0); EOSINOPHILS # (AUTO) 0.2 K/uL (0-0.4); EOSINOPHILS % (AUTO) 2.2 % (0.0-4.0); HEMOGLOBIN 12.2 g/dL (12.0-16.0); LYMPHOCYTES # (AUTO) 2.8 K/uL (2.5-16.5); LYMPHOCYTES % (AUTO) 32.7 % (20.5-51.1); MEAN CORPUSCULAR HEMOGLOBIN 32 pg (27-31); MEAN CORPUSCULAR HGB CONC 34 g/dL (33-37); MEAN CORPUSCULAR VOLUME 93.6 fL (80-94); MONOCYTES # (AUTO) 0.7 K/uL (0.8-1.0); MONOCYTES % (AUTO) 7.5 % (1.7-9.3); NEUTROPHILS # (AUTO) 4.9 K/uL (1.8-7.7); NEUTROPHILS % (AUTO) 56.4 % (42.2-75.2); PLATELET COUNT (AUTO) 215 K/uL (140-450); RED BLOOD CELL COUNT(AUTO) 3.85 MIL/uL (4.20-5.40); RED CELL DISTRIBUTION WIDTH 16.5 % (11.6-13.7); WHITE BLOOD COUNT (AUTO) 8.7 K/uL (4.8-10.8)
[2021-06-19] MEDS: methocarbamoL 500 MG TAB PO SCH (21:15)
[2021-06-19 22:01] LABS: ANION GAP 9.6 (8-16); CHLORIDE 98 mmol/L (98-107); CREATININE 1.1 mg/dL (0.6-1.3); GLUCOSE 111 mg/dL (74-106); POTASSIUM 3.6 mmol/L (3.5-5.1); SODIUM SERUM 140 mmol/L (136-145); UREA NITROGEN, BLOOD 6 mg/dL (7-18)
--- NOTE | 2021-06-19 22:56 | NUR ---
pt is not able to ambulate on her own but is able to reposition herself in bed. Due to pt's nails it is difficult to get pulsox reading.
[2021-06-20] MEDS: MORPHINE SULFATE 2 MG/ML SYR IVP PRN ×4 (00:04→22:16)
--- NOTE | 2021-06-20 03:48 | NUR ---
Pt states she is having difficulty getting a good nights sleep. Pt was left with water and ice at bedside tray.
--- NOTE | 2021-06-20 07:18 | NUR ---
report given to Meena TOLENTINO
--- NOTE | 2021-06-20 07:26 | NUR ---
REPORT RECIEVED FROM JAMEEL LEAL FOR PATIENT CONTINUITY OF CARE.
[2021-06-20] MEDS ORDERED: LORazepam 2 MG/ML VIAL IM/IVP PRN (08:55)
[2021-06-20] MEDS ORDERED: ONDANSETRON 4 MG/2 ML VIAL IM/IVP PRN (08:55)
[2021-06-20] MEDS ORDERED: ACETAMINOPHEN 325 MG TAB PO PRN (08:55)
[2021-06-20] MEDS ORDERED: ZOLPIDEM 5 MG TAB PO PRN (08:55)
[2021-06-20] MEDS ORDERED: DOCUSATE SODIUM 100 MG GELCAP PO PRN (08:55)
[2021-06-20] MEDS ORDERED: MECLIZINE 25 MG TAB PO PRN (08:55)
[2021-06-20] MEDS: lisinopriL 20 MG TAB PO SCH (09:00)
[2021-06-20] MEDS: METOPROLOL 25 MG TAB PO SCH ×2 (09:00→22:15)
[2021-06-20] MEDS: ASPIRIN 81 MG TAB.CHEW PO SCH (09:35)
[2021-06-20] MEDS: methocarbamoL 500 MG TAB PO SCH ×4 (09:35→22:16)
[2021-06-20] MEDS: NACL 0.9% 1,000 ML IV SCH (09:50)
--- NOTE | 2021-06-20 10:15 | NUR ---
PATIENT O2 SAT 78, PLACED PATIENT ON 2L NC
--- NOTE | 2021-06-20 10:20 | NUR ---
PATIENT REQUESTING FOOD, PROVIDED WITH SANDWICH AND WATER AT BEDSIDE. ALL PATIENT NEEDS MET AT THIS TIME.
[2021-06-20] MEDS: FLUoxetine 10 MG CAP PO SCH (10:30)
--- NOTE | 2021-06-20 10:37 | NUR ---
ULTRASOUND AT PATIENT BEDSIDE.
--- NOTE | 2021-06-20 11:49 | NUR ---
DR. HOLDER EVALUATING PATIENT AT BEDSIDE.
--- NOTE | 2021-06-20 12:43 | NUR ---
PROVIDED PATIENT WITH LUNCH TRAY AT BEDSIDE. ALL PATIENT NEEDS MET AT THIS TIME. WILL CONTINUE TO MONITOR
[2021-06-20] MEDS: GABAPENTIN 300 MG CAP PO SCH ×2 (13:46→17:34)
--- NOTE | 2021-06-20 14:47 | NUR ---
LAB AT PATIENT BEDSIDE.
[2021-06-20 15:23] LABS: BASOPHILS # (AUTO) 0.1 K/uL (0.00-0.22); BASOPHILS % (AUTO) 1.8 % (0.0-2.0); EOSINOPHILS # (AUTO) 0.2 K/uL (0-0.4); EOSINOPHILS % (AUTO) 2.4 % (0.0-4.0); HEMATOCRIT 32.3 % (36-48); HEMOGLOBIN 10.8 g/dL (12.0-16.0); LYMPHOCYTES # (AUTO) 1.9 K/uL (2.5-16.5); LYMPHOCYTES % (AUTO) 25.4 % (20.5-51.1); MEAN CORPUSCULAR HEMOGLOBIN 32 pg (27-31); MEAN CORPUSCULAR HGB CONC 33 g/dL (33-37); MEAN CORPUSCULAR VOLUME 94.2 fL (80-94); MONOCYTES # (AUTO) 0.6 K/uL (0.8-1.0); MONOCYTES % (AUTO) 8.3 % (1.7-9.3); NEUTROPHILS # (AUTO) 4.6 K/uL (1.8-7.7); NEUTROPHILS % (AUTO) 62.1 % (42.2-75.2); PLATELET COUNT (AUTO) 201 K/uL (140-450); RED BLOOD CELL COUNT(AUTO) 3.43 MIL/uL (4.20-5.40); RED CELL DISTRIBUTION WIDTH 16.7 % (11.6-13.7); WHITE BLOOD COUNT (AUTO) 7.4 K/uL (4.8-10.8)
--- NOTE | 2021-06-20 15:23 | NUR ---
ULTRASOUND AT PATIENT BEDSIDE
[2021-06-20 15:51] LABS: ANION GAP 8.6 (8-16); CARBON DIOXIDE 34.2 mmol/L (21-32); CHLORIDE 101 mmol/L (98-107); GLUCOSE 113 mg/dL (74-106); POTASSIUM 3.8 mmol/L (3.5-5.1); SODIUM SERUM 140 mmol/L (136-145); UREA NITROGEN, BLOOD 7 mg/dL (7-18)
[2021-06-20 16:05] LABS: CHOL/HDL RATIO 2.7 (1-4.5); THYROID STIMULATING HORMONE 1.28 uIU/mL (0.34-3.74)
--- NOTE | 2021-06-20 16:45 | NUR ---
PATIENT HAS BEEN SCREENED AND CATEGORIZED LOW NUTRITION RISK. PATIENT WILL BE SEEN WITHIN 7 DAYS OF ADMISSION. 06/26/[address]
--- NOTE | 2021-06-20 18:15 | NUR ---
PATIENT PROVIDED WITH DINNER TRAY AT BEDSIDE, ALL PATIENT NEEDS MET AT THIS TIME.
--- NOTE | 2021-06-20 19:19 | NUR ---
Pt report given to JAMEEL MORGAN. Transfer of care at this time.
--- NOTE | 2021-06-20 19:50 | NUR ---
received pt from day shift RN. pt currently a/o x 4, gcs 15. able to move all extremities freely. IV site patent on RAC running NS maintenance.
[2021-06-20] MEDS ORDERED: ATORVASTATIN 20 MG TAB PO SCH (21:00)
--- NOTE | 2021-06-20 22:00 | NUR ---
NAD at this time. pt medicated with PRN morphine for severe back pain.
--- NOTE | 2021-06-20 23:50 | NUR ---
pt reporting of increased pain. PRN norco given.
--- NOTE | 2021-06-21 01:00 | NUR ---
on semi fowlers. currently asleep. visible chest rise and fall.
[2021-06-21] MEDS: NACL 0.9% 1,000 ML IV SCH (01:49)
--- NOTE | 2021-06-21 03:00 | NUR ---
NAD at this time. denies any needs.
--- NOTE | 2021-06-21 05:00 | NUR ---
reports increased back pain at this time.PRN medication to be given.
[2021-06-21] MEDS: MORPHINE SULFATE 2 MG/ML SYR IVP PRN (07:11)
--- NOTE | 2021-06-21 07:30 | NUR ---
REPORT RECIEVED FROM JAMEEL MORGAN FOR PATIENT CONTINUITY OF CARE.
--- NOTE | 2021-06-21 08:15 | NUR ---
Patient will be admitted to care of DR HOLDER. Admited to TELEMETRY. Will go to room 121 A. Belongings list completed. Report to JAMEEL GASTELUM.
--- NOTE | 2021-06-21 08:15 | NUR ---
The patient's care was reviewed and supervised by Kacey Stephenson RN.
[2021-06-21 08:30] VITALS: BP 132/76
--- NOTE | 2021-06-21 08:30 | NUR ---
ADMITTED: ADMITTED TO ROOM 121A. AAOX4 WITH EPISODE OF FORGETFULNESS, ABLE TO MAKE NEEDS KNOWN. CURRENTLY ON 2L NC 02 SAT 95%. SOB ON EXERTION. ADMITTED FOR INTRACTABLE BACK PAIN. IV TO THE LFA 18 G WITH NS 0.9% @60CC/HR. INTACT AND PATENT. ASSESSED SKIN, C/D/I, NO WOUNDS OR PRESSURE ULCER NOTED. EXPLAINED POC AND PATIENT VERBALIZED UNDERSTANDING. NO DISTRESS OR PAIN AT THIS TIME. BED IN LOW AND LOCK POSITION. CALL LIGHT WITHIN REACH. STABLE CONDITION AT THIS TIME. WILL CONT TO MONITOR.
[2021-06-21] MEDS: lisinopriL 20 MG TAB PO SCH (09:51)
[2021-06-21] MEDS: methocarbamoL 500 MG TAB PO SCH ×3 (09:51→17:00)
[2021-06-21] MEDS: METOPROLOL 25 MG TAB PO SCH (09:51)
[2021-06-21] MEDS: ASPIRIN 81 MG TAB.CHEW PO SCH (09:51)
[2021-06-21] MEDS: GABAPENTIN 300 MG CAP PO SCH ×3 (09:51→17:00)
[2021-06-21] MEDS: FLUoxetine 10 MG CAP PO SCH (09:51)
[2021-06-21 12:00] VITALS: BP 132/81
[2021-06-21] MEDS ORDERED: METH-1681 PO (13:20)
--- NOTE | 2021-06-21 14:00 | NUR ---
CALLED FAMILY: CALLED PATIENT'S DAUGHTER NELIDA ON THE PHONE AND MADE HER AWARE THAT HER MOTHER (PATIENT) IS BEING DC TODAY AND NEEDS TO BE PICKED UP. ALSO, TO BRING THE PATIENT'S PORTABLE 02 TANK SHE HAS AT HOME. PER PATIENT, SHE USES 02 AT ALL TIMES. ON ROOM AIR 02 SAT IS 85%. WITH 2LNC 02 SAT 94%. PER PATIENT'S DAUGHTER, SHE WILL LOOK FOR THE PORTABLE 02 AND WILL CALL BACK WHEN SHES ON HER WAY. MADE PATIENT AWARE THAT HER DAUGHTER WILL BE PICKING HER UP. SINCE PATIENT CANNOT CALL HER DAUGHTER BECAUSE HER PHONE NEED CHARGING.
[2021-06-21 16:00] VITALS: BP 131/82
--- NOTE | 2021-06-21 19:15 | NUR ---
DC HOME: 1899: HEAVEN LEONARD CALLED AND SHE'S OUTSIDE TO TIMBER BUCKER THE PATIENT. EXPLAINED DC INSTRUCTIONS AND GIVEN TO PATIENT. PATIENT VERBALIZED UNDERSTANDING. ALL PERSONAL BELONGINGS GIVEN TO PATIENT AND DENIES MISSING ITEMS. IV REMOVED FROM THE LFA. IV CATH INTACT WHEN REMOVED. COVER SITE WITH GAUZE AND SECURE WITH TAPE. NO C/O PAIN OR DISTRESS AT THIS TIME. STABLE CONDITION THROUGHOUT THE SHIFT. WILL ENDORSE TO NEXT SHIFT TO HELP PATIENT GET DRESS AND NEED TO BED WHEELED OUT. 1914: CALLED DAUGHTER HORACIO WHO IS WAITING OUTSIDE WILL HAVE TO WAIT FOR A COUPLE MORE MINUTES DUE TO CHANGE OF SHIFT. WELL , THE [employer] ANALYST ARE DISCHARGING OTHER PATIENT AT THIS TIME.
--- NOTE | 2021-06-21 19:20 | NUR ---
CLOSING NOTES: SBAR REPORT GIVEN TO NEXT SHIFT. PATIENT HAS REFUSED TO EAT BREAKFAST LUNCH, AND DINNER. PATIENT STATES SHE WILL EAT AT HOME. PATIENT HAS BEEN SLEEPING THROUGHOUT THE DAY AND COMPLAINED THAT SHE DIDNT SLEEP AT ALL IN THE ER. PATIENT IS RESTING IN BED QUIETLY AND WAITING FOR BE WHEELED OUT.
--- NOTE | 2021-06-21 19:30 | NUR ---
RECD. RESTING IN BED, COMFORTABLY SLEEPING BUT EASILY WAKES UP WHEN AWAKEN. ON 02 AT 2 LITERS VIA N/C. SAFETY MEASURES ENFORCED. BED IN THE LOWEST POSITION, CALL LIGHT IN REACH. WAITING FOR DAUGHTER TO PICK HER UP FOR DISCHARGE TO HOME. DENIES PAIN 0/10.
--- NOTE | 2021-06-21 22:00 | NUR ---
ASSISTED TO CHANGED INTO HER OWN CLOTHES. Addendum: 06/22/21 at 0234 by Latonia Sam LVN CORRECTION: THE TIME FOR THIS NOTES IS 1999 NOT 2199.
--- NOTE | 2021-06-21 22:00 | NUR ---
TAKEN TO HOSPITAL LOBBY IN STABLE CONDITION FOR DISCHARGE TO HOME. DAUGHTER FORGOT TO BRING -02 TANK BUT STATED THEY LIVE NEARBY. [facility]. VERBALIZED UNDERSTANDING.
--- NOTE | 2021-06-22 11:11 | NUR ---
PHYSICAL THERAPY CO-SIGN The Physical Therapy Progress Notes documented by [employer] At [employer] have been reviewed. Reviewed/Co-Signed by: Jennifer Sanchez Documentation Done by: TAMI BEACH PTA Addendum: 06/22/21 at 1111 by Jennifer Sanchez PT Amended: Links added.
== END 2021-06-21 20:20 | disposition home or self-care (01) | DRG 552 ==
LOC: MED 15:38 → MTU 19:14 → MMU 19:14 → MTU 06-21 05:40
DX: M54.9 Dorsalgia, unspecified (principal); I10 Essential (primary) hypertension; E66.9 Obesity, unspecified; I25.10 Atherosclerotic heart disease of native coronary artery without angina pectoris; G89.29 Other chronic pain; E78.5 Hyperlipidemia, unspecified; Z20.822 Contact with and (suspected) exposure to COVID-19; F32.9 Major depressive disorder, single episode, unspecified; G62.9 Polyneuropathy, unspecified; M77.51 Other enthesopathy of right foot and ankle; M62.838 Other muscle spasm; Z68.35 Body mass index [BMI] 35.0-35.9, adult; Z79.1 Long term (current) use of non-steroidal anti-inflammatories (NSAID); Z79.899 Other long term (current) drug therapy; Z79.82 Long term (current) use of aspirin; Z99.81 Dependence on supplemental oxygen; Z79.891 Long term (current) use of opiate analgesic
CPT/HCPCS: 36415; 72110; 72131; 73600; 80048; 81003; 82150; 83036; 83690; 83880; 84134; 84443; 84484; 85025; 85610; 85730; 87081; 93880; 93970; 96372; 96374; 97116; 97163-GP; 97530; 99285; J1885; J2270; Q0092